=== PATIENT | female | born 1965 | race Caucasian/White ===

== ENCOUNTER 2021-02-02 09:18 | Inpatient (IN) ==
--- NOTE | 2021-02-02 09:51 | Emergency Department Note ---
Impression & Plan Altered mental status ED Provider Note NAME: SHAWNA DUONG AGE: 55 SEX: F : 1965 ARRIVES VIA: Ambulance INFORMANT: Patient, ED PROVIDER(S): Julio Lux MD Chief Complaint: Confusion, frequent falls HPI: Patient does present from [facility] due to concern for confusion and frequent falls. Patient was was recently started on baclofen. Patient's history is somewhat limited due to confusion. The patient will awake to voice but does not follow basic commands. The patient does move all 4 extremities. ROS: Unable to obtain secondary to confusion Past medical history: See below Surgical history: See below Social history: See below Physical Exam: GENERAL: NAD, [wearing a mask], non-toxic. EYE EXAM: Normal conjunctiva. PERRL, no anisocoria and EOM's grossly intact w/o pain. [OROPHARYNX: Moist mucus membranes. Grossly normal dentition. ] NECK: Supple, no nuchal rigidity, no adenopathy, non-tender. No signs of meningismus. LUNGS: Clear to auscultation. Normal chest wall mechanics. HEART: NSR, no MRG. ABDOMEN: Abdomen soft, non-tender, normo-active bowel sounds, no masses, no rebound or guarding. BACK: No CVA TTP. SKIN: No rashes and no bruising. UPPER EXTREMITIES: Upper extremities are grossly normal. LOWER EXTREMITIES: BKA is present, fairly well-healed, small wound to the distal portion of the right stump with no surrounding erythema fluctuance or drainage. NEURO EXAM: A&O x3, cranial nerves II-XII grossly intact, normal speech, moves all 4 extremities on command w/o issue. Differential diagnoses: Infection, dehydration, metabolic abnormality, hypo/hyperglycemia, electrolyte disturbance, anemia, hypoxia, cardiac sources, intracerebral event, toxicologic, neurologic, as well as other pathologies. Course: Patient was seen and evaluated the bedside. Full history physical exam was performed. [EKG interpreted by me] Normal sinus rhythm, rate of 71, normal intervals, normal axis, no ST changes or T WI. Imaging Studies: See Below [Cardiac monitoring: An order was placed for continuous cardiac monitoring. The monitor shows a rate of 75 with sinus rhythm.] MDM: Patient does present with concern for confusion and falls. The patient did have bladder completed along with a CT of the head and cervical spine. No obvious concerning wounds on the patient. Patient did have a small abrasion to the right BKA. Patient is afebrile. I did attempt to transfer the patient back to her side but they were concerned as the patient is not back to her baseline mental status. Given this I did add additional medications IV fluids and antibiotics as a precaution. Patient does not appear meningitic. Patient's blood work and imaging is fairly reassuring. The patient was mildly dry and did receive IV fluids. I did speak to the on-call hospitalist Dr. Brar the patient was adm itted to the medicine service. Past Med/Surg History Medical History Bipolar 1 disorder GERD (gastroesophageal reflux disease) H/O: HTN (hypertension) Osteomyelitis Pleural effusion Surgical History Hx of BKA Social History Smoking Status: Current every day smoker Current Living Situation: Residential Feels Safe at Home: Yes Allergies Allergies Allergy/AdvReac Type Severity Reaction Status Date / Time vancomycin AdvReac Unknown Unknown Unverified 09/10/20 14:31 Home Meds Home Medications Medication Instructions Recorded Confirmed alprazolam 0.25 mg tablet (Xanax) 0.25 mg PO BID 09/10/20 02/02/21 buprenorphine 8 mg-naloxone 2 mg 1 film SUBLINGUAL BID 09/10/20 02/02/21 sublingual film (Suboxone) escitalopram oxalate 20 mg tablet 20 mg PO QAM 09/10/20 02/02/21 (Lexapro) ferrous sulfate 325 mg (65 mg 325 mg PO QAM 09/10/20 02/02/21 iron) tablet (Iron (ferrous sulfate)) folic acid 1 mg tablet 1 mg PO QAM 09/10/20 02/02/21 gabapentin 300 mg capsule 300 mg PO TID 09/10/20 02/02/21 (Neurontin) insulin lispro 100 unit/mL 0 unit SUBCUT .SLIDING SCALE 09/10/20 02/02/21 subcutaneous pen (Humalog KwikPen (U-100) Insulin) metoprolol succinate 50 mg 50 mg PO BIDM 09/10/20 02/02/21 tablet,extended release 24 hr (Toprol XL) nicotine 21 mg/24 hr daily 1 patch TRANSDERMAL QAM 09/10/20 02/02/21 transdermal patch (Nicoderm CQ) oxcarbazepine 150 mg tablet 150 mg PO BID 09/10/20 02/02/21 (Trileptal) topiramate 25 mg tablet (Topamax) 25 mg PO QAM 09/10/20 02/02/21 amlodipine 5 mg tablet (Norvasc) 5 mg PO QAM 02/02/21 02/02/21 baclofen 10 mg tablet 10 mg PO TID 02/02/21 02/02/21 insulin glargine 100 unit/mL (3 10 unit SUBCUT HS 02/02/21 02/02/21 mL) subcutaneous pen (Lantus Solostar U-100 Insulin) pantoprazole 40 mg tablet,delayed 40 mg PO DAILYBB 02/02/21 02/02/21 release (Protonix) potassium chloride 20 mEq 20 meq PO QAM 02/02/21 02/02/21 tablet,extended release (K-Tab) quetiapine 25 mg tablet (Seroquel) 25 mg PO BID 02/02/21 02/02/21 sodium bicarbonate 650 mg tablet 650 mg PO TID 02/02/21 02/02/21 Results & Data (ED) Vital Signs Vital Signs - 24 hr 02/02/21 09:24 02/02/21 09:37 02/02/21 11:38 Temperature 37.2 C Temperature Source Oral Pulse Rate 73 72 71 Pulse Rate from SpO2 Sensor 71 Pulse Rhythm Regular Pulse Strength Normal Respiratory Rate 16 17 18 Respiratory Effort / Characteristics Non-Labored Spontaneous Respiratory Depth Normal Blood Pressure 182/101 H 182/101 H 171/118 H Blood Pressure Mean 128 128 135 Blood Pressure Position Lying Pulse Oximetry 95 100 99 Oxygen Delivery Method Room Air Sepsis Recent Fever Within 48 Hours No Sepsis New/Unexplained Change in Mental Status N/A Sepsis Action Taken by Nursing No Action Required 02/02/21 11:47 02/02/21 12:00 02/02/21 12:30 Temperature Temperature Source Pulse Rate 71 70 73 Pulse Rate from SpO2 Sensor 70 73 Pulse Rhythm Regular Pulse Strength Respiratory Rate 18 18 18 Respiratory Effort / Characteristics Respiratory Depth Blood Pressure 178/82 H 184/87 H Blood Pressure Mean 114 119 Blood Pressure Position Pulse Oximetry 99 99 100 Oxygen Delivery Method Room Air Sepsis Recent Fever Within 48 Hours Sepsis New/Unexplained Change in Mental Status Sepsis Action Taken by Nursing 02/02/21 13:00 02/02/21 13:30 02/02/21 14:06 Temperature Temperature Source Pulse Rate 77 77 76 Pulse Rate from SpO2 Sensor 76 76 76 Pulse Rhythm Pulse Strength Respiratory Rate 17 17 17 Respiratory Effort / Characteristics Respiratory Depth Blood Pressure 196/88 H 182/87 H 176/88 H Blood Pressure Mean 124 118 117 Blood Pressure Position Pulse Oximetry 98 98 98 Oxygen Delivery Method Sepsis Recent Fever Within 48 Hours Sepsis New/Unexplained Change in Mental Status Sepsis Action Taken by Nursing 02/02/21 14:49 02/02/21 16:00 02/02/21 16:30 Temperature Temperature Source Pulse Rate 74 79 76 Pulse Rate from SpO2 Sensor 75 79 78 Pulse Rhythm Pulse Strength Respiratory Rate 17 16 23 Respiratory Effort / Characteristics Respiratory Depth Blood Pressure 181/88 H 188/101 H 170/112 H Blood Pressure Mean 119 130 131 Blood Pressure Position Pulse Oximetry 98 98 94 Oxygen Delivery Method Sepsis Recent Fever Within 48 Hours Sepsis New/Unexplained Change in Mental Status Sepsis Action Taken by Nursing 02/02/21 17:00 Temperature Temperature Source Pulse Rate 74 Pulse Rate from SpO2 Sensor 74 Pulse Rhythm Pulse Strength Respiratory Rate 18 Respiratory Effort / Characteristics Respiratory Depth Blood Pressure 159/82 H Blood Pressure Mean 107 Blood Pressure Position Pulse Oximetry 97 Oxygen Delivery Method Sepsis Recent Fever Within 48 Hours Sepsis New/Unexplained Change in Mental Status Sepsis Action Taken by Residential Medications Current Medication List: was personally reviewed by me Laboratory Data Attestation: I reviewed the patient's lab results. Result diagrams: 02/02/21 11:10 02/02/21 11:10 Lab Results 02/02/21 02/02/21 02/02/21 Range/Units 09:35 10:15 11:10 WBC 6.24 (4.8-10.8) K/uL RBC 4.21 (4.2-5.4) M/uL Hgb 11.8 L (12.0-16.0) g/dL Hct 35.7 L (37-47) % MCV 84.8 (80-100) fL MCH 28.0 (25-34) pg MCHC 33.1 (32-36) g/dL RDW Std Deviation 42.1 (36.4-46.3) fL RDW Coeff of Luis 13.9 (11.5-14.5) % Plt Count 261 (130-400) K/uL MPV 9.2 (7.4-10.4) fL Immature Gran % (Auto) 0.8 % Neut % (Auto) 67.1 % Lymph % (Auto) 19.4 % [place] % (Auto) 10.4 % Eos % (Auto) 1.8 % Baso % (Auto) 0.5 % Neut # (Auto) 4.19 (1.4-6.5) K/uL Lymph # (Auto) 1.21 (1.2-3.4) K/uL [place] # (Auto) 0.65 H (0.11-0.59) K/uL Eos # (Auto) 0.11 (0-0.5) K/uL Baso # (Auto) 0.03 (0-0.2) K/uL Immature Gran # (Auto) 0.05 H (0.00-0.02) K/uL Sodium (136-145) mmol/L Potassium (3.5-5.1) mmol/L Chloride (98-107) mmol/L Carbon Dioxide (21-32) mmol/L Anion Gap (3-11) BUN (7-18) mg/dl Creatinine (0.6-1.2) mg/dl Est Cr Clr Drug Dosing ml/min Est GFR ( Amer) ml/min Est GFR (Non-Af Amer) ml/min BUN/Creatinine Ratio (10-20) Glucose (70-99) mg/dl POC Glucose 180 H (70-99) mg/dl Calcium (8.5-10.1) mg/dl Total Bilirubin (0.2-1) mg/dl AST (15-37) U/L ALT (12-78) U/L Alkaline Phosphatase (45-117) U/L Troponin I (0-0.045) ng/ml Total Protein (6.4-8.2) gm/dl Albumin (3.4-5.0) gm/dl Globulin (2.5-4.0) gm/dl Albumin/Globulin Ratio (0.9-2) TSH (0.300-4.500) uIu/ml Urine Color Yellow Urine Appearance Clear (Clear) Urine pH 7.5 (4.5-7.5) Ur Specific Scenic 1.013 (1.000-1.030) Urine Protein 2+ H (Negative) Urine Glucose (UA) 1+ H (Negative) Urine Ketones Negative (Negative) Urine Blood Trace H (Negative) Urine Nitrite Negative (Negative) Urine Bilirubin Negative (Negative) Urine Urobilinogen Negative (Negative) Ur Leukocyte Esterase Negative (Negative) Urine WBC (Auto) 0 (0-5) /hpf Urine RBC (Auto) 5-10 H (0-4) /hpf U Hyaline Cast (Auto) 0 (0-5) /lpf U Epithel Cells (Auto) 0-5 (0-5) /lpf Urine Bacteria (Auto) Negative (Negative) 02/02/21 Range/Units 11:10 WBC (4.8-10.8) K/uL RBC (4.2-5.4) M/uL Hgb (12.0-16.0) g/dL Hct (37-47) % MCV (80-100) fL MCH (25-34) pg MCHC (32-36) g/dL RDW Std Deviation (36.4-46.3) fL RDW Coeff of Luis (11.5-14.5) % Plt Count (130-400) K/uL MPV (7.4-10.4) fL Immature Gran % (Auto) % Neut % (Auto) % Lymph % (Auto) % [place] % (Auto) % Eos % (Auto) % Baso % (Auto) % Neut # (Auto) (1.4-6.5) K/uL Lymph # (Auto) (1.2-3.4) K/uL [place] # (Auto) (0.11-0.59) K/uL Eos # (Auto) (0-0.5) K/uL Baso # (Auto) (0-0.2) K/uL Immature Gran # (Auto) (0.00-0.02) K/uL Sodium 139 (136-145) mmol/L Potassium 5.0 (3.5-5.1) mmol/L Chloride 111 H (98-107) mmol/L Carbon Dioxide 24 (21-32) mmol/L Anion Gap 4.0 (3-11) BUN 35 H (7-18) mg/dl Creatinine 1.65 H (0.6-1.2) mg/dl Est Cr Clr Drug Dosing 38.3 ml/min Est GFR ( Amer) 39.8 ml/min Est GFR (Non-Af Amer) 34.3 ml/min BUN/Creatinine Ratio 21.2 H (10-20) Glucose 152 H (70-99) mg/dl POC Glucose (70-99) mg/dl Calcium 8.8 (8.5-10.1) mg/dl Total Bilirubin 0.2 (0.2-1) mg/dl AST 35 (15-37) U/L ALT 18 (12-78) U/L Alkaline Phosphatase 145 H (45-117) U/L Troponin I < 0.015 (0-0.045) ng/ml Total Protein 8.1 (6.4-8.2) gm/dl Albumin 2.7 L (3.4-5.0) gm/dl Globulin 5.4 H (2.5-4.0) gm/dl Albumin/Globulin Ratio 0.5 L (0.9-2) TSH 2.760 (0.300-4.500) uIu/ml Urine Color Urine Appearance (Clear) Urine pH (4.5-7.5) Ur Specific [place]enic (1.000-1.030) Urine Protein (Negative) Urine Glucose (UA) (Negative) Urine Ketones (Negative) Urine Blood (Negative) Urine Nitrite (Negative) Urine Bilirubin (Negative) Urine Urobilinogen (Negative) Ur Leukocyte Esterase (Negative) Urine WBC (Auto) (0-5) /hpf Urine RBC (Auto) (0-4) /hpf U Hyaline Cast (Auto) (0-5) /lpf U Epithel Cells (Auto) (0-5) /lpf Urine Bacteria (Auto) (Negative) Administered Medications Heparin Sodium (Porcine) (Heparin Sod 5,000 Unit/0.5 Ml Vial) 5,000 units SQ Q12 ABIGAIL Stop: 03/04/21 20:59 Last Admin: 02/02/21 22:03 Dose: 5,000 units Documented by: [id number] Lactated Ringer's (Lr) 1,000 mls @ 80 mls/hr IV .[id number] ABIGAIL Stop: 03/04/21 20:21 Last Admin: 02/02/21 20:34 Dose: 80 mls/hr Documented by: [id number] Insulin Aspart (Insulin Aspart 100 Units/Ml 3 Ml Pen) 0 units SC ACHS [facility] Stop: 03/04/21 20:59 Last Admin: 02/02/21 22:04 Dose: Not Given Documented by: [id number] Labetalol HCl (Labetalol Hcl Iv 5 Mg/Ml 20ml) 10 mg IV Q4 PRN PRN Reason: HTN SBP >200 and/or DBP >110 Stop: 03/04/21 18:04 Last Admin: 02/03/21 03:56 Dose: 10 mg Documented by: [id number] Cosigned by: [id number] Oxcarbazepine (Oxcarbazepine 150 Mg Tablet) 150 mg PO BID [facility] Stop: 03/04/21 20:59 Last Admin: 02/02/21 22:25 Dose: Not Given Documented by: [id number] Quetiapine Fumarate (Quetiapine Fumarate 25 Mg Tablet) 25 mg PO BID [facility] Stop: 03/04/21 20:59 Last Admin: 02/02/21 22:24 Dose: Not Given Documented by: [id number] Sodium Bicarbonate (Sodium Bicarbonate 650 Mg Tab) 650 mg PO TID [facility] Stop: 03/04/21 20:59 Last Admin: 02/02/21 22:24 Dose: Not Given Documented by: [id number] Discontinued Medications Haloperidol Lactate (Haloperidol Lactate 5 Mg/Ml 1 Ml Vial) 5 mg IM Q4 PRN PRN Reason: combativeness Stop: 02/03/21 00:01 Last Admin: 02/02/21 18:32 Dose: 5 mg Documented by: [id number] Haloperidol Lactate (Haloperidol Lactate 5 Mg/Ml 1 Ml Vial) 5 mg IV Q4H PRN PRN Reason: agitation, combativenss Stop: 03/04/21 18:28 Last Admin: 02/02/21 23:45 Dose: 5 mg Documented by: [id number] Haloperidol Lactate (Haloperidol Lactate 5 Mg/Ml 1 Ml Vial) Confirm Administered Dose 5 mg .ROUTE .STK-MED ONE Stop: 02/03/21 00:06 Last Admin: 02/03/21 00:17 Dose: Not Given Documented by: [id number] Haloperidol Lactate (Haloperidol Lactate 5 Mg/Ml 1 Ml Vial) 5 mg IM NOW STA Stop: 02/03/21 00:14 Last Admin: 02/03/21 00:22 Dose: 5 mg Documented by: [id number] Sodium Chloride (Nss) 500 mls @ 999 mls/hr IV .Q31M ABIGAIL Stop: 02/02/21 10:45 Last Infusion: 02/02/21 12:14 Dose: 0 mls/hr Documented by: [id number] Admin: 02/02/21 11:43 Dose: 999 mls/hr Documented by: [id number] Sodium Chloride (Nss 1000ml) 1,000 mls @ 999 mls/hr IV .Q1H1M ONE Stop: 02/02/21 13:22 Last Infusion: 02/02/21 13:33 Dose: 0 mls/hr Documented by: [id number] Admin: 02/02/21 12:28 Dose: 999 mls/hr Documented by: [id number] Piperacillin Sod/Tazobactam Sod (Zosyn) 4.5 gm in 120 mls @ 240 mls/hr IV NOW ONE Stop: 02/02/21 16:14 Last Infusion: 02/02/21 16:25 Dose: 0 mls/hr Documented by: [id number] Admin: 02/02/21 15:55 Dose: 240 mls/hr Documented by: [id number] Lorazepam (Lorazepam 2 Mg/Ml Vial (Im Use)) 0.5 mg IM NOW STA Stop: 02/02/21 15:51 Last Admin: 02/02/21 15:55 Dose: 0.5 mg Documented by: [id number] Discharge Plan Visit Data Chief Complaint: Altered Mental Status ED Provider: Julio Lux Discharge Problem: Altered mental status Patient Disposition: Admitted As Inpatient Condition: Good Discharge Instructions Interventions: ED Discharge Assessment Last Done: 02/02/21 20:04 Discharge Problem: Altered mental status Qualifiers: Altered mental status type: unspecified Qualified Code(s): R41.82 - Altered mental status, unspecified
[2021-02-02] MEDS ORDERED: SODIUM CHLORIDE 0.9% 500 ML IV SCH (10:15)
--- NOTE | 2021-02-02 11:00 | XRay Report ---
XR chest 1V portable CLINICAL HISTORY: confusion, falls COMPARISON STUDY: Chest radiograph and chest CT September 10, 2020. FINDINGS: Incidental note is made of cholecystectomy clips. Elevation of the right hemidiaphragm is u nchanged. There is no consolidation or evidence for pulmonary edema. Cardiomediastinal silhouette is unremarkable. IMPRESSION: No acute cardiopulmonary findings. ACT 112: Negative or not required by law. Electronically signed by: Carlos Saavedra M.D. 02/02/2021 10:59 AM
[2021-02-02 11:22] LABS: Basophils # (auto) 0.03 K/uL (0-0.2); Basophils % (auto) 0.5 %; Eosinophils # (auto) 0.11 K/uL (0-0.5); Eosinophils % (auto) 1.8 %; Hematocrit (blood only) 35.7 % (37-47); Hemoglobin 11.8 g/dL (12.0-16.0); Immature Granulocytes # (auto) 0.05 K/uL (0.00-0.02); Immature Granulocytes % (auto) 0.8 %; Lymphocytes # (auto) 1.21 K/uL (1.2-3.4); Lymphocytes % (auto) 19.4 %; Mean Corpuscular Hgb Conc 33.1 g/dL (32-36); Mean Corpuscular Volume 84.8 fL (80-100); Mean Platelet Volume 9.2 fL (7.4-10.4); Monocytes # (auto) 0.65 K/uL (0.11-0.59); Monocytes % (auto) 10.4 %; Neutrophils # (auto) 4.19 K/uL (1.4-6.5); Neutrophils % (auto) 67.1 %; Platelet Count 261 K/uL (130-400); RDW Coefficient of Variation 13.9 % (11.5-14.5); RDW Standard Deviation 42.1 fL (36.4-46.3); Red Blood Count 4.21 M/uL (4.2-5.4); White Blood Count 6.24 K/uL (4.8-10.8)
[2021-02-02 11:42] LABS: Alanine Aminotransferase 18 U/L (12-78); Albumin Level 2.7 gm/dl (3.4-5.0); Aspartate Aminotransferase 35 U/L (15-37); BUN Creatinine Ratio 21.2 (10-20); Blood Urea Nitrogen 35 mg/dl (7-18); Calcium 8.8 mg/dl (8.5-10.1); Carbon Dioxide 24 mmol/L (21-32); Chloride 111 mmol/L (98-107); Creatinine Clr Calc Pharmacy 38.3 ml/min; Est GFR (African American) 39.8 ml/min; Est GFR (Non-African American) 34.3 ml/min; Glucose 152 mg/dl (70-99); Sodium 139 mmol/L (136-145)
[2021-02-02 11:52] LABS: Albumin Globulin Ratio 0.5 (0.9-2); Alkaline Phosphatase 145 U/L (45-117); Bilirubin,Total 0.2 mg/dl (0.2-1); Globulin 5.4 gm/dl (2.5-4.0); Total Protein 8.1 gm/dl (6.4-8.2); Troponin I < 0.015 ng/ml (0-0.045)
--- NOTE | 2021-02-02 11:52 | CT Scan Report ---
CT SCAN OF THE CERVICAL SPINE CLINICAL HISTORY: Falls. Change in mental status. COMPARISON STUDY: No priors. TECHNIQUE: CT scan of the cervical spine is performed from the skull base to the upper thoracic spine . Images are reviewed in the axial, sagittal, and coronal planes. IV contrast was not administered fo r this examination. A dose lowering technique was utilized adhering to the principles of ALARA. CT DOSE: 1460.21 mGy.cm FINDINGS: Skeletal structures: The skeletal structures appear osteopenic. There is no evidence of fracture or s ubluxation involving the cervical spine. Vertebral body height and alignment are maintained. There is straightening of the cervical lordosis. Small anterior osteophytes are seen throughout. The odontoid process and lateral masses are intact. The atlantoaxial articulation is preserved noting productive degenerative change. The spinous processes appear intact. Intervertebral discs: There is mild multilevel disc space narrowing, greatest at C5-C6. Central canal: Posterior disc osteophyte complexes at C3-C4, C4-C5, and C5-C6 may contribute to mild acquired compromise of the central canal. Soft tissues: The prevertebral and paraspinous soft tissues are within normal limits. There is athero sclerotic calcification of the carotid bulbs. Calvarium: The visualized calvarium at the skull base appears intact. Brain parenchyma: Partially visualized brain parenchyma at the skull base is within normal limits. Mastoids: The mastoid air cells are well pneumatized. Lung apices: Clear as visualized. IMPRESSION: There is no evidence of fracture or subluxation involving the cervical spine. ACT 112: Negative or not required by law. Electronically signed by: Erik Martinez M.D. 02/02/2021 11:50 AM
--- NOTE | 2021-02-02 11:53 | CT Scan Report ---
CT OF THE HEAD WITHOUT CONTRAST CLINICAL HISTORY: falls COMPARISON STUDY: No previous studies for comparison. TECHNIQUE: Helical axial images of the head were obtained without IV contrast. Automated exposure con trol was utilized for the study. A dose lowering technique was utilized adhering to the principles o f ALARA. FINDINGS: This exam is mildly compromised by motion artifact. No acute intracranial hemorrhage, midli ne shift or mass effect is present. Ventricular system is normal. Basilar cisterns are patent. There are no extra axial collections. Hypodensity within the posterior limb of the left internal capsule is noted. There are no findings to suggest acute dural sinus thrombosis or acute territorial infarct. N o calvarial fracture is identified. There is a small left facial contusion. IMPRESSION: 1. Exam mildly compromised by motion artifact. No acute intracranial hemorrhage or mass effect. 2. Hypodensity within the posterior limb of the left internal capsule. Although technically age indet erminate, this is likely chronic. 3. Small left facial contusion. 4. No calvarial fracture identified. ACT 112: Negative or not required by law. Electronically signed by: Carlos Saavedra M.D. 02/02/2021 11:51 AM
[2021-02-02] MEDS ORDERED: SODIUM CHLORIDE 0.9% 1000ML 1,000 ML IV ONE (12:22)
[2021-02-02 12:23] LABS: Appearance Urine Clear (Clear); Bacteria Urine Automated Negative (Negative); Bilirubin Urine Negative (Negative); Blood Urine Trace (Negative); Cast Urine Automated 0 /lpf (0-5); Color Urine Yellow; Epithelial Cell Urine Auto 0-5 /lpf (0-5); Glucose Urine UA 1+ (Negative); Ketones Urine Negative (Negative); Leukocyte Esterase Urine Negative (Negative); Nitrite Urine Negative (Negative); Specific Gravity Urine 1.013 (1.000-1.030); Urobilinogen Urine Negative (Negative); WBC Urine Automated 0 /hpf (0-5); pH Urine 7.5 (4.5-7.5)
[2021-02-02 12:33] LABS: Protein Urine 2+ (Negative)
[2021-02-02] MEDS ORDERED: PIPERACILLIN/TAZOBACTAM 4.5 GM/120 ML BAG IV ONE (15:45)
[2021-02-02] MEDS ORDERED: PIPERACILL/TAZOBAC CONSULT ACTIVE PRN (15:45)
[2021-02-02] MEDS ORDERED: LORazepam 2 MG/ML VIAL (IM USE) IM STA (15:50)
--- NOTE | 2021-02-02 17:22 | History & Physical Report ---
Date of Service February 02, 2021 Assessment & Plan (1) Altered mental status: Plan: Delirium vs. medication induced delirium vs. post concussion - no acute findings on head CT scan, not hypoxic, toxicology screen pending, normothermic, no evidence of focal deficits and/or infective process - consider adding thiamine if no improvement - hold baclofen - hold Xanax - should be able to tolerate oral - continue with her Suboxone starting tomorrow, continue escitalopram, - hold Neurontin - Repeat head CT scan for any acute changes for DASH (delayed onset subdural hematoma) post falls - Attempt to avoid further benzodiazepines - for acute combative episodes Haldol IM - TSH normal, electrolytes and glucose normal - If no improvement may need to consider alternatives with LP (2) DMII (diabetes mellitus, type 2): Plan: Continue with bolus insulin until mentation improves to ensure adequate PO intake - Clears for now as toelrated (3) H/O: HTN (hypertension): Plan: Continue with metoprolol - IV labatelol support as needed for severe HTN (4) GERD (gastroesophageal reflux disease): Plan: Continue with protonix 40 PO daily; change to IV if unable to take PO (5) Bipolar 1 disorder: Plan: As above, continue mood stabilizing medications History of Present Illness Primary Care Provider: Wesley Williamson 55 YOF with resident of [facility] with past medical history of: DM II, Chronic pain, GERD, HTN, bilateral BKA, bipolar disorder, YARY, EVELIA, nicotine dependance, generalized muscle weakness. There are no records in our system for review. Patient is also now sedated following Ativan in the EMD for combativeness and delirium. Most of the information in this HPI is obtained from record review that accompanied the patient from [facility]. The patient was brought to the EMD today secondary to multiple falls as well as acute delirium and confusion. Review of nursing notes show that patient had a fall from her wheel chair on the in the evening, following with delirium on the as well as another fall out of bed on the early in the morning. Patient also reported to be getting out of bed and attempting to walk on her stumps looking for her cigarettes. The patient was started on Baclofen on the assuming for her chronic pain syndrome. This has since been held sine the in the morning. Patient arrived in the EMD had a CT scan of the head and neck performed. Revealing osteophytes in the cervical region of c3-c6 with mild acquired compromise of the central canal and atheroscleroptic calcifications of the carotid bulbs. CT of the head revealed hypodensity of the posterior limb of the left internal capsule likely chronic. Per the EMD the nurse the patient would wax and wane with her delirium and was again attempting to get up out of bed, and was sedated with Ativan. Her routine lab work did not reveal any evidence of infection and urine was not noted to have any bacteria. Her glucose is in an accetable range. In the EMD she was given 1 dose of Zosyn. Patient will be admitted for medical telemetry to continue to evaluate her delirium and monitor for any other dysrhythmias. Allergies Allergy/AdvReac Type Severity Reaction Status Date / Time vancomycin AdvReac Unknown Unknown Unverified 09/10/20 14:31 Home Medications Medication Instructions Recorded Confirmed Type alprazolam 0.25 mg tablet (Xanax) 0.25 mg PO BID 09/10/20 02/02/21 History buprenorphine 8 mg-naloxone 2 mg 1 film SUBLINGUAL BID 09/10/20 02/02/21 History sublingual film (Suboxone) escitalopram oxalate 20 mg tablet 20 mg PO QAM 09/10/20 02/02/21 History (Lexapro) ferrous sulfate 325 mg (65 mg 325 mg PO QAM 09/10/20 02/02/21 History iron) tablet (Iron (ferrous sulfate)) folic acid 1 mg tablet 1 mg PO QAM 09/10/20 02/02/21 History gabapentin 300 mg capsule 300 mg PO TID 09/10/20 02/02/21 History (Neurontin) insulin lispro 100 unit/mL 0 unit SUBCUT .SLIDING SCALE 09/10/20 02/02/21 H istory subcutaneous pen (Humalog KwikPen (U-100) Insulin) metoprolol succinate 50 mg 50 mg PO BIDM 09/10/20 02/02/21 History tablet,extended release 24 hr (Toprol XL) nicotine 21 mg/24 hr daily 1 patch TRANSDERMAL QAM 09/10/20 02/02/21 History transdermal patch (Nicoderm CQ) oxcarbazepine 150 mg tablet 150 mg PO BID 09/10/20 02/02/21 History (Trileptal) topiramate 25 mg tablet (Topamax) 25 mg PO QAM 09/10/20 02/02/21 History amlodipine 5 mg tablet (Norvasc) 5 mg PO QAM 02/02/21 02/02/21 History baclofen 10 mg tablet 10 mg PO TID 02/02/21 02/02/21 History insulin glargine 100 unit/mL (3 10 unit SUBCUT HS 02/02/21 02/02/21 History mL) subcutaneous pen (Lantus Solostar U-100 Insulin) pantoprazole 40 mg tablet,delayed 40 mg PO DAILYBB 02/02/21 02/02/21 History release (Protonix) potassium chloride 20 mEq 20 meq PO QAM 02/02/21 02/02/21 History tablet,extended release (K-Tab) quetiapine 25 mg tablet (Seroquel) 25 mg PO BID 02/02/21 02/02/21 History sodium bicarbonate 650 mg tablet 650 mg PO TID 02/02/21 02/02/21 History Past Med/Surg History Medical History (Updated 02/02/21 @ 17:51 by BARRETT Bartholomew) Bipolar 1 disorder GERD (gastroesophageal reflux disease) H/O: HTN (hypertension) Osteomyelitis Pleural effusion Surgical History (Updated 02/02/21 @ 15:54 by Julio Lux MD) Hx of BKA Social History Smoking Status: Current every day smoker Feels Safe at Home: Yes Review of Systems Review of Systems: Unable to perform secondary to sedation Physical Exam Physical Exam: PHYSICAL EXAM: General: sedated Head: Normocephalic, ENT: PERRLA, no pharyngeal exudate, mucous membranes moist Neuro: sedated, opens eyes to speech and pain, prior to sedation she was reportedly awake and forming complete sentences although confused, moved all extremities. Currently localizes pain Chest: equal rise and fall of the chest, no accessory muscle use, no heaves or thrills, Clear to auscultation, on room air, Cardiac: Regular rate and rhythm, telemetry reviewed, skin warm dry, cap refill <3 seconds, peripheral pulses +2 no JVD, no murmur, no edema GI: NABS x 4 quadrants, soft, no guarding or tenderness : Spontaneously voiding, Extremities: bilateral bka Psych: as per HPI Skin: no rash or erythema Results & Data Results & Data ([facility]) Vital Signs (Past 12 Hours) Vital Signs Temp Pulse Resp BP Pulse Ox 02/02/21 16:30 76 23 170/112 H 94 02/02/21 16:00 79 16 188/101 H 98 02/02/21 14:49 74 17 181/88 H 98 02/02/21 14:06 76 17 176/88 H 98 02/02/21 13:30 77 17 182/87 H 98 02/02/21 13:00 77 17 196/88 H 98 02/02/21 12:30 73 18 184/87 H 100 02/02/21 12:00 70 18 178/82 H 99 02/02/21 11:47 71 18 99 02/02/21 11:38 71 18 171/118 H 99 02/02/21 09:37 37.2 C 72 17 182/101 H 100 02/02/21 09:24 73 16 182/101 H 95 Laboratory Results Abnormal lab results 02/02/21 02/02/21 02/02/21 Range/Units 09:35 10:15 11:10 Hgb 11.8 L (12.0-16.0) g/dL Hct 35.7 L (37-47) % Faulkner # (Auto) 0.65 H (0.11-0.59) K/uL Immature Gran # (Auto) 0.05 H (0.00-0.02) K/uL Chloride (98-107) mmol/L BUN (7-18) mg/dl Creatinine (0.6-1.2) mg/dl BUN/Creatinine Ratio (10-20) Glucose (70-99) mg/dl POC Glucose 180 H (70-99) mg/dl Alkaline Phosphatase (45-117) U/L Albumin (3.4-5.0) gm/dl Globulin (2.5-4.0) gm/dl Albumin/Globulin Ratio (0.9-2) Urine Protein 2+ H (Negative) Urine Glucose (UA) 1+ H (Negative) Urine Blood Trace H (Negative) Urine RBC (Auto) 5-10 H (0-4) /hpf 02/02/21 Range/Units 11:10 Hgb (12.0-16.0) g/dL Hct (37-47) % Faulkner # (Auto) (0.11-0.59) K/uL Immature Gran # (Auto) (0.00-0.02) K/uL Chloride 111 H (98-107) mmol/L BUN 35 H (7-18) mg/dl Creatinine 1.65 H (0.6-1.2) mg/dl BUN/Creatinine Ratio 21.2 H (10-20) Glucose 152 H (70-99) mg/dl POC Glucose (70-99) mg/dl Alkaline Phosphatase 145 H (45-117) U/L Albumin 2.7 L (3.4-5.0) gm/dl Globulin 5.4 H (2.5-4.0) gm/dl Albumin/Globulin Ratio 0.5 L (0.9-2) Urine Protein (Negative) Urine Glucose (UA) (Negative) Urine Blood (Negative) Urine RBC (Auto) (0-4) /hpf Diagnostic Findings Chest X-Ray 02/02/21 10:14 XR chest 1V portable CLINICAL HISTORY: confusion, falls COMPARISON STUDY: Chest radiograph and chest CT September 10, 2020. FINDINGS: Incidental note is made of cholecystectomy clips. Elevation of the right hemidiaphragm is unchanged. There is no consolidation or evidence for pulmonary edema. Cardiomediastinal silhouette is unremarkable. IMPRESSION: No acute cardiopulmonary findings. ACT 112: Negative or not required by law. Electronically signed by: Carlos Saavedra M.D. 02/02/2021 10:[address] 02/02/21 10:14 CT OF THE HEAD WITHOUT CONTRAST CLINICAL HISTORY: falls COMPARISON STUDY: No previous studies for comparison. TECHNIQUE: Helical axial images of the head were obtained without IV contrast. Automated exposure control was utilized for the study. A dose lowering technique was utilized adhering to the principles of ALARA. FINDINGS: This exam is mildly compromised by motion artifact. No acute intracranial hemorrhage, midline shift or mass effect is present. Ventricular system is normal. Basilar cisterns are patent. There are no extra axial collections. Hypodensity within the posterior limb of the left internal capsule is noted. There are no findings to suggest acute dural sinus thrombosis or acute territorial infarct. No calvarial fracture is identified. There is a small left facial contusion. IMPRESSION: 1. Exam mildly compromised by motion artifact. No acute intracranial hemorrhage or mass effect. 2. Hypodensity within the posterior limb of the left internal capsule. Although technically age indeterminate, this is likely chronic. 3. Small left facial contusion. 4. No calvarial fracture identified. ACT 112: Negative or not required by law. Electronically signed by: Carlos Saavedra M.D. 02/02/2021 11:[address] 02/02/21 10:15 CT SCAN OF THE CERVICAL SPINE CLINICAL HISTORY: Falls. Change in mental status. COMPARISON STUDY: No priors. TECHNIQUE: CT scan of the cervical spine is performed from the skull base to the upper thoracic spine. Images are reviewed in the axial, sagittal, and coronal planes. IV contrast was not administered for this examination. A dose lowering technique was utilized adhering to the principles of ALARA. CT DOSE: 1460.21 mGy.cm FINDINGS: Skeletal structures: The skeletal structures appear osteopenic. There is no evidence of fracture or subluxation involving the cervical spine. Vertebral body height and alignment are maintained. There is straightening of the cervical lordosis. Small anterior osteophytes are seen throughout. The odontoid process and lateral masses are intact. The atlantoaxial articulation is preserved noting productive degenerative change. The spinous processes appear intact. Intervertebral discs: There is mild multilevel disc space narrowing, greatest at C5-C6. Central canal: Posterior disc osteophyte complexes at C3-C4, C4-C5, and C5-C6 may contribute to mild acquired compromise of the central canal. Soft tissues: The prevertebral and paraspinous soft tissues are within normal limits. There is atherosclerotic calcification of the carotid bulbs. Calvarium: The visualized calvarium at the skull base appears intact. Brain parenchyma: Partially visualized brain parenchyma at the skull base is within normal limits. Mastoids: The mastoid air cells are well pneumatized. Lung apices: Clear as visualized. IMPRESSION: There is no evidence of fracture or subluxation involving the cervical spine. ACT 112: Negative or not required by law. Electronically signed by: Erik Martinez M.D. 02/02/2021 11:50 AM Medications Administered Home Medications alprazolam 0.25 mg tablet (Xanax) 0.25 mg PO BID 09/10/20 [History Confirmed 02/02/21] buprenorphine 8 mg-naloxone 2 mg sublingual film (Suboxone) 1 film SUBLINGUAL BID 09/10/20 [History Confirmed 02/02/21] escitalopram oxalate 20 mg tablet (Lexapro) 20 mg PO QAM 09/10/20 [History Confirmed 02/02/21] ferrous sulfate 325 mg (65 mg iron) tablet (Iron (ferrous sulfate)) 325 mg PO QAM 09/10/20 [History Confirmed 02/02/21] folic acid 1 mg tablet 1 mg PO QAM 09/10/20 [History Confirmed 02/02/21] gabapentin 300 mg capsule (Neurontin) 300 mg PO TID 09/10/20 [History Confirmed 02/02/21] insulin lispro 100 unit/mL subcutaneous pen (Humalog KwikPen (U-100) Insulin) 0 unit SUBCUT .SLIDING SCALE 09/10/20 [History Confirmed 02/02/21] metoprolol succinate 50 mg tablet,extended release 24 hr (Toprol XL) 50 mg PO BIDM 09/10/20 [History Confirmed 02/02/21] nicotine 21 mg/24 hr daily transdermal patch (Nicoderm CQ) 1 patch TRANSDERMAL QAM 09/10/20 [History Confirmed 02/02/21] oxcarbazepine 150 mg tablet (Trileptal) 150 mg PO BID 09/10/20 [History Confirmed 02/02/21] topiramate 25 mg tablet (Topamax) 25 mg PO QAM 09/10/20 [History Confirmed 02/02/21] amlodipine 5 mg tablet (Norvasc) 5 mg PO QAM 02/02/21 [History Confirmed 02/02/21] baclofen 10 mg tablet 10 mg PO TID 02/02/21 [History Confirmed 02/02/21] insulin glargine 100 unit/mL (3 mL) subcutaneous pen (Lantus Solostar U-100 Insulin) 10 unit SUBCUT HS 02/02/21 [History Confirmed 02/02/21] pantoprazole 40 mg tablet,delayed release (Protonix) 40 mg PO DAILYBB 02/02/21 [History Confirmed 02/02/21] potassium chloride 20 mEq tablet,extended release (K-Tab) 20 meq PO QAM 02/02/21 [History Confirmed 02/02/21] quetiapine 25 mg tablet (Seroquel) 25 mg PO BID 02/02/21 [History Confirmed 02/02/21] sodium bicarbonate 650 mg tablet 650 mg PO TID 02/02/21 [History Confirmed 02/02/21] Active Medications Miscellaneous Information (Piperacill/Tazobac Consult Active) 1 ea N/A UD PRN PRN Reason: Consult Stop: 03/04/21 15:44 Discontinued Medications Sodium Chloride (Nss) 500 mls @ 999 mls/hr IV .Q31M ABIGAIL Stop: 02/02/21 10:45 Last Infusion: 02/02/21 12:14 Dose: 0 mls/hr Documented by: [id number] Admin: 02/02/21 11:43 Dose: 999 mls/hr Documented by: [id number] Sodium Chloride (Nss 1000ml) 1,000 mls @ 999 mls/hr IV .Q1H1M ONE Stop: 02/02/21 13:22 Last Infusion: 02/02/21 13:33 Dose: 0 mls/hr Documented by: [id number] Admin: 02/02/21 12:28 Dose: 999 mls/hr Documented by: [id number] Piperacillin Sod/Tazobactam Sod (Zosyn) 4.5 gm in 120 mls @ 240 mls/hr IV NOW ONE Stop: 02/02/21 16:14 Last Infusion: 02/02/21 16:25 Dose: 0 mls/hr Documented by: [id number] Admin: 02/02/21 15:55 Dose: 240 mls/hr Documented by: [id number] Lorazepam (Lorazepam 2 Mg/Ml Vial (Im Use)) 0.5 mg IM NOW STA Stop: 02/02/21 15:51 Last Admin: 02/02/21 15:55 Dose: 0.5 mg Documented by: [id number] ECG Additional Comments: Normal sinus rhythm Normal ECG When compared with ECG of 10-SEP-2020 13:09, ST no longer depressed in Inferior leads Code Status & VTE Plan Code Status CODE: DNR/DNI per record review VTE: Heparin subq 5000 subq q12 Supervising Physician Co-Signing Physician Notes Pt seen/examined in conjunction with SAVANNAH Mendez. Orders and plan of admission reviewed. 55 y/o F Hx HTN, DM II, bipolar, BL BKA, Chronic pain. The pt presents from a nursing facility with acute delirium. She has not had fevers. Labs are at baseline and imaging is negative for acute findings. Per nursing staff at her facility, she became progressively confused after being placed on Baclofen. \ The pt could not provide us with any information. We left a message with her daughter who was also not available at the time of admission. OE: General: The pt had received lorazepam in the ER at the time of my exam and was not awake ENT: Could not examine oral cavity Eyes: KINGS, EOMI Head and neck: Normocephalic, atraumatic, No JVD, neck is supple. Chest/heart: Nontender, S1,2, RRR, no murmurs, no gallops Lungs: CTAB, no wheezing or crackles Abdomen: Nontender, nondistended, BS+ Neuro: Neuro exam is partially deferred - she is moving all extrems when awake Musculoskeletal: BL BKA - no signs of infection and no edema Skin: No acute rashes or ulcers Extremities: BL BKA P: 1) AMS - we suspect polypharmacy as we do not have evidence of infection - she is taking multiple psychoactive medications and Suboxone as well. We are holding her Xanax and gabapentin. For now, she scan continue Seroquel and Suboxone if tolerated. 2) DM - SS Q6 3) HTN - metoprolol, amlodipine 4) Chronic pain - Suboxone should be continued Full code - Heparin prophylaxis Total time for this admit including review of labs, meds, imaging, available records - discussion with ER attending - 42 min PG Care Time/CCT Total # of Minutes Spent Total Time Spent with Patient: Total time spent is greater than 50% in coordination of care (as documented) at patient's floor/unit and/or counseling patient: Coding Level of Care Code INT OBSERVATION CARE 70M LVL 3 Diagnoses Altered mental status R41.82 Altered mental status type: unspecified DMII (diabetes mellitus, type 2) E11.9 H/O: HTN (hypertension) Z86.79 GERD (gastroesophageal reflux disease) K21.9 Bipolar 1 disorder F31.9 (1) Altered mental status Altered mental status type: unspecified Qualified Code(s): R41.82 - Altered mental status, unspecified
[2021-02-02] MEDS ORDERED: HALOPERIDOL LACTATE 5 MG/ML 1 ML VIAL IM PRN (18:02)
[2021-02-02] MEDS ORDERED: HALOPERIDOL LACTATE 5 MG/ML 1 ML VIAL IV PRN (18:29)
[2021-02-02] MEDS ORDERED: LACTATED RINGER'S 1,000 ML IV SCH (20:22)
[2021-02-02] MEDS ORDERED: GLUCOSE 40% GEL 15 GM TUBE PO PRN (20:22)
[2021-02-02] MEDS ORDERED: CARBOHYDRATES FOR HYPOGLYCEMIA PO PRN (20:22)
[2021-02-02] MEDS ORDERED: GLUCOSE 10 TABS/TUBE PO PRN (20:22)
[2021-02-02] MEDS ORDERED: GLUCAGON FOR INJ 1 MG VIAL SQ PRN (20:22)
[2021-02-02] MEDS ORDERED: DEXTROSE 50% 50 ML SYRINGE IV PRN (20:22)
[2021-02-02] MEDS: HEPARIN SOD 5,000 UNIT/0.5 ML VIAL SQ SCH (22:03)
[2021-02-02] MEDS: INSULIN ASPART 100 UNITS/ML 3 ML PEN SC SCH (22:04)
[2021-02-02] MEDS: SODIUM BICARBONATE 650 MG TAB PO SCH (22:24)
[2021-02-02] MEDS: QUEtiapine FUMARATE 25 MG TABLET PO SCH (22:24)
[2021-02-02] MEDS: OXcarbazepine 150 MG TABLET PO SCH (22:25)
[2021-02-03] MEDS ORDERED: HALOPERIDOL LACTATE 5 MG/ML 1 ML VIAL ONE (00:05)
[2021-02-03] MEDS ORDERED: HALOPERIDOL LACTATE 5 MG/ML 1 ML VIAL IV PRN ×2 (00:06→17:02)
[2021-02-03] MEDS ORDERED: HALOPERIDOL LACTATE 5 MG/ML 1 ML VIAL IM STA (00:13)
[2021-02-03] MEDS ORDERED: HALOPERIDOL LACTATE 5 MG/ML 1 ML VIAL IM PRN ×2 (00:17)
[2021-02-03] MEDS: LABETALOL HCL IV 5 MG/ML 20ML IV PRN ×2 (03:56→23:30)
[2021-02-03 04:32] LABS: Amphetamines+Metham, Urine Neg (Neg); Barbiturates, Urine Neg (Neg); Benzodiazepine, Urine Neg (Neg); Cocaine, Urine Neg (Neg); MDMA (Ecstacy), Urine Neg (Neg); Methadone, Urine Neg (Neg); Opiate, Urine Neg (Neg); Phencyclidine, Urine Neg (Neg)
[2021-02-03 07:17] LABS: Basophils # (auto) 0.02 K/uL (0-0.2); Basophils % (auto) 0.4 %; Hematocrit (blood only) 31.1 % (37-47); Hemoglobin 10.4 g/dL (12.0-16.0); Immature Granulocytes # (auto) 0.01 K/uL (0.00-0.02); Immature Granulocytes % (auto) 0.2 %; Lymphocytes # (auto) 0.83 K/uL (1.2-3.4); Lymphocytes % (auto) 17.7 %; Mean Corpuscular Hgb Conc 33.4 g/dL (32-36); Mean Corpuscular Volume 83.6 fL (80-100); Mean Platelet Volume 8.9 fL (7.4-10.4); Monocytes % (auto) 6.4 %; Neutrophils # (auto) 3.54 K/uL (1.4-6.5); Neutrophils % (auto) 75.3 %; Platelet Count 249 K/uL (130-400); RDW Coefficient of Variation 13.8 % (11.5-14.5); RDW Standard Deviation 41.6 fL (36.4-46.3); Red Blood Count 3.72 M/uL (4.2-5.4)
--- NOTE | 2021-02-03 07:27 | Electrocardiogram Report ---
Test Reason : Blood Pressure : / mmHG Vent. Rate : 071 BPM Atrial Rate : 071 BPM P-R Int : 166 ms QRS Dur : 082 ms QT Int : 404 ms P-R-T Axes : 071 045 058 degrees QTc Int : 439 ms Poor data quality, interpretation may be adversely affected Normal sinus rhythm Normal ECG When compared with ECG of 10-SEP-2020 13:09, Prior tracing too poor quality to compare Confirmed by Glynn Andujar ([id number]) on 02/03/2021 7:26:51 AM Referred By: Wesley Heartskyler Confirmed By:Glynn Andujar
[2021-02-03 07:35] LABS: Calcium 8.5 mg/dl (8.5-10.1); Creatinine Clr Calc Pharmacy 42.2 ml/min; Est GFR (African American) 45.4 ml/min; Est GFR (Non-African American) 39.2 ml/min; Potassium 4.2 mmol/L (3.5-5.1)
[2021-02-03] MEDS: NICOTINE 21 MG/24 HR TDSY TD SCH (08:03)
[2021-02-03] MEDS: HEPARIN SOD 5,000 UNIT/0.5 ML VIAL SQ SCH ×2 (08:07→20:02)
--- NOTE | 2021-02-03 08:14 | Hospitalist Progress Note ---
Date of Service February 03, 2021 Assessment & Plan (1) Altered mental status: Plan: Delirium vs. medication induced delirium vs. 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 Although technically age indeterminate, this is likely chronic. * Consider Repeat head CT scan for any acute changes for DASH (delayed onset subdural hematoma) post falls * CT cervical spine without evidence of acute fracture or subluxation but does note posterior disc osteophyte complexes at C3-C4, C4-C5, and C5-C6 may contribute to mild acquired compromise of the central canal. There is mild multilevel disc space narrowing, greatest at C5-C6. * MRI brain pending given continued status, however did get Haldol 15mg since admission via IV/IM * Consider c/w Neurology if rest of work-up negative, ?LP TSH, B12 wnl Drug screen negative, however reportedly on xanax BID at [facility], ? withdrawal. Patient is catatonic. Hx possible clavicular abscess/mediastinitis (CT September w/ Inflammatory change extends inferiorly from the right sternoclavicular joint within the presternal soft tissues and also within the retrosternal soft tissues posterior to the manubrium. This places the patient at risk for developing mediastinitis. gas and fluid containing fluid collection seen above the right clavicular head. This closely approximates the dermal surface and is consistent with developing abscess. and evidence of septic arthritis. 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 diffusely tender to palpation abd exam --> CT chest, A/P, R femur pending --> ECHO pending Adding ESR/CRP to AM labs, if further elevated consider empirically starting abx LR but add bicarb as low on AM labs, acidotic possible medication related from antipsychotics due to agitation Maintain 1:1 for safety Continue to monitor (2) DMII (diabetes mellitus, type 2): Plan: Continue with bolus insulin until mentation improves to ensure adequate PO intake Clears for now as tolerated (3) H/O: HTN (hypertension): Plan: Continue with metoprolol - IV labatelol support as needed for severe HTN --> would need moved to tele Will add hydralazine as needed for now (4) GERD (gastroesophageal reflux disease): Plan: Continue with protonix 40 PO daily; change to IV if unable to take PO Will order IV for today to limit PO unless able to take moving forward (5) Bipolar 1 disorder: Plan: As above, continue mood stabilizing medications Xanax and gabapentin held --> may also be contributing to worsening pain/withdrawal Consult psych to assist with reinstitution/eval Admission and Anticipated Discharge Date Admission Date: February 02, 2021 Subjective Patient evaluated this morning. Agitated with staff requiring Haldol. Awake but not answering questions. Denied any ROS but unable to answer questions. Painful with palpation of stomach, R stump (with abrasion and erythema) as well as her R clavicle. No tremors appreciated but moving all around the bed. 1:1 maintained and state she has been like that much of the morning. Yelling out at times but not really answering in the way of any questioning. Review of Systems Review of Systems: Unobtainable due to cognitive status Physical Exam Physical Exam: PHYSICAL EXAM: General: Awake but not alert or oriented, not answering any questions Head: normocephalic,small L facial brusing ENT: dry mm, trachea midline without deviation Resp: not tachypneic, no acute respiratory distress or accessory muscle use. Bibasilar crackles, no wheezing appreciated. On room air 99% CV: tachycardia, no murmurs appreciated however heart sounds sound distant. no edema appreciated however patient with b/l BKA (abrasian to R stump, eschar and erythema and patient wincing when palpated). chest tender to palpation across mediastinum GI: +BS, tender to palpation diffusely, no guarding or rigidity appreciated : no eddy Ext: b/l BKA (abrasion as above R stump). R clavicle w step off and pain to palpation AC joint Psych: alert, but not oriented. pupils equal and reactive to light. moving all extremities. no focal deficits appreciated Results & Data Results & Data ([facility]) Vital Signs (Past 12 Hours) Vital Signs Temp Pulse Pulse Resp BP BP Pulse Ox 02/03/21 07:45 36.7 C 101 H 18 166/90 H 96 08/28/21 03:50 37.1 C 110 H 18 211/94 H 95 02/03/21 00:00 77 02/02/21 20:22 37.6 C H 80 18 147/98 H 97 Laboratory Results 02/03/21 02/03/21 02/03/21 Range/Units 07:07 07:07 07:07 WBC 4.70 L (4.8-10.8) K/uL RBC 3.72 L (4.2-5.4) M/uL Hgb 10.4 L (12.0-16.0) g/dL Hct 31.1 L (37-47) % MCV 83.6 (80-100) fL MCH 28.0 (25-34) pg MCHC 33.4 (32-36) g/dL RDW Std Deviation 41.6 (36.4-46.3) fL RDW Coeff of Luis 13.8 (11.5-14.5) % Plt Count 249 (130-400) K/uL MPV 8.9 (7.4-10.4) fL Immature Gran % (Auto) 0.2 % Neut % (Auto) 75.3 % Lymph % (Auto) 17.7 % [place] % (Auto) 6.4 % Eos % (Auto) 0.0 % Baso % (Auto) 0.4 % Neut # (Auto) 3.54 (1.4-6.5) K/uL Lymph # (Auto) 0.83 L (1.2-3.4) K/uL [place] # (Auto) 0.30 (0.11-0.59) K/uL Eos # (Auto) 0.00 (0-0.5) K/uL Baso # (Auto) 0.02 (0-0.2) K/uL Immature Gran # (Auto) 0.01 (0.00-0.02) K/uL Sodium 141 (136-145) mmol/L Potassium 4.2 D (3.5-5.1) mmol/L Chloride 114 H (98-107) mmol/L Carbon Dioxide 19 L (21-32) mmol/L Anion Gap 8.0 (3-11) BUN 30 H (7-18) mg/dl Creatinine 1.48 H (0.6-1.2) mg/dl Est Cr Clr Drug Dosing 42.2 ml/min Est GFR ( Amer) 45.4 ml/min Est GFR (Non-Af Amer) 39.2 ml/min BUN/Creatinine Ratio 20.0 (10-20) Glucose 181 H (70-99) mg/dl POC Glucose (70-99) mg/dl Calcium 8.5 (8.5-10.1) mg/dl Magnesium 2.0 (1.8-2.4) mg/dl Total Bilirubin (0.2-1) mg/dl AST (15-37) U/L ALT (12-78) U/L Alkaline Phosphatase (45-117) U/L Troponin I (0-0.045) ng/ml Total Protein (6.4-8.2) gm/dl Albumin (3.4-5.0) gm/dl Globulin (2.5-4.0) gm/dl Albumin/Globulin Ratio (0.9-2) Vitamin B12 Pending TSH (0.300-4.500) uIu/ml Urine Color Urine Appearance (Clear) Urine pH (4.5-7.5) Ur Specific [place] (1.000-1.030) Urine Protein (Negative) Urine Glucose (UA) (Negative) Urine Ketones (Negative) Urine Blood (Negative) Urine Nitrite (Negative) Urine Bilirubin (Negative) Urine Urobilinogen (Negative) Ur Leukocyte Esterase (Negative) Urine WBC (Auto) (0-5) /hpf Urine RBC (Auto) (0-4) /hpf U Hyaline Cast (Auto) (0-5) /lpf U Epithel Cells (Auto) (0-5) /lpf Urine Bacteria (Auto) (Negative) Nasal Screen MRSA (PCR) (Negative) Urine Opiates Screen (Neg) Ur Methadone, Qual (Neg) Urine Barbiturates (Neg) Ur Phencyclidine (PCP) (Neg) U Amphetamin/Meth Scrn (Neg) MDMA (Ecstasy) Screen (Neg) U Benzodiazepines Scrn (Neg) Ur Cocaine Metabolite (Neg) U Marijuana (THC) Screen (Neg) COVID-19 Eval Order SARS-CoV-2 (PCR) (Negative) 02/03/21 02/03/21 02/02/21 Range/Units 03:50 03:50 18:39 WBC (4.8-10.8) K/uL RBC (4.2-5.4) M/uL Hgb (12.0-16.0) g/dL Hct (37-47) % MCV (80-100) fL MCH (25-34) pg MCHC (32-36) g/dL RDW Std Deviation (36.4-46.3) fL RDW Coeff of Luis (11.5-14.5) % Plt Count (130-400) K/uL MPV (7.4-10.4) fL Immature Gran % (Auto) % Neut % (Auto) % Lymph % (Auto) % [place] % (Auto) % Eos % (Auto) % Baso % (Auto) % Neut # (Auto) (1.4-6.5) K/uL Lymph # (Auto) (1.2-3.4) K/uL [place] # (Auto) (0.11-0.59) K/uL Eos # (Auto) (0-0.5) K/uL Baso # (Auto) (0-0.2) K/uL Immature Gran # (Auto) (0.00-0.02) K/uL Sodium (136-145) mmol/L Potassium (3.5-5.1) mmol/L Chloride (98-107) mmol/L Carbon Dioxide (21-32) mmol/L Anion Gap (3-11) BUN (7-18) mg/dl Creatinine (0.6-1.2) mg/dl Est Cr Clr Drug Dosing ml/min Est GFR ( Amer) ml/min Est GFR (Non-Af Amer) ml/min BUN/Creatinine Ratio (10-20) Glucose (70-99) mg/dl POC Glucose 160 H (70-99) mg/dl Calcium (8.5-10.1) mg/dl Magnesium (1.8-2.4) mg/dl Total Bilirubin (0.2-1) mg/dl AST (15-37) U/L ALT (12-78) U/L Alkaline Phosphatase (45-117) U/L Troponin I (0-0.045) ng/ml Total Protein (6.4-8.2) gm/dl Albumin (3.4-5.0) gm/dl Globulin (2.5-4.0) gm/dl Albumin/Globulin Ratio (0.9-2) Vitamin B12 TSH (0.300-4.500) uIu/ml Urine Color Urine Appearance (Clear) Urine pH (4.5-7.5) Ur Specific [place] (1.000-1.030) Urine Protein (Negative) Urine Glucose (UA) (Negative) Urine Ketones (Negative) Urine Blood (Negative) Urine Nitrite (Negative) Urine Bilirubin (Negative) Urine Urobilinogen (Negative) Ur Leukocyte Esterase (Negative) Urine WBC (Auto) (0-5) /hpf Urine RBC (Auto) (0-4) /hpf U Hyaline Cast (Auto) (0-5) /lpf U Epithel Cells (Auto) (0-5) /lpf Urine Bacteria (Auto) (Negative) Nasal Screen MRSA (PCR) Negative (Negative) Urine Opiates Screen Neg (Neg) Ur Methadone, Qual Neg (Neg) Urine Barbiturates Neg (Neg) Ur Phencyclidine (PCP) Neg (Neg) U Amphetamin/Meth Scrn Neg (Neg) MDMA (Ecstasy) Screen Neg (Neg) U Benzodiazepines Scrn Neg (Neg) Ur Cocaine Metabolite Neg (Neg) U Marijuana (THC) Screen Neg (Neg) COVID-19 Eval Order SARS-CoV-2 (PCR) (Negative) 02/02/21 02/02/21 02/02/21 Range/Units 18:32 18:32 11:10 WBC (4.8-10.8) K/uL RBC (4.2-5.4) M/uL Hgb (12.0-16.0) g/dL Hct (37-47) % MCV (80-100) fL MCH (25-34) pg MCHC (32-36) g/dL RDW Std Deviation (36.4-46.3) fL RDW Coeff of Luis (11.5-14.5) % Plt Count (130-400) K/uL MPV (7.4-10.4) fL Immature Gran % (Auto) % Neut % (Auto) % Lymph % (Auto) % [place] % (Auto) % Eos % (Auto) % Baso % (Auto) % Neut # (Auto) (1.4-6.5) K/uL Lymph # (Auto) (1.2-3.4) K/uL [place] # (Auto) (0.11-0.59) K/uL Eos # (Auto) (0-0.5) K/uL Baso # (Auto) (0-0.2) K/uL Immature Gran # (Auto) (0.00-0.02) K/uL Sodium 139 (136-145) mmol/L Potassium 5.0 (3.5-5.1) mmol/L Chloride 111 H (98-107) mmol/L Carbon Dioxide 24 (21-32) mmol/L Anion Gap 4.0 (3-11) BUN 35 H (7-18) mg/dl Creatinine 1.65 H (0.6-1.2) mg/dl Est Cr Clr Drug Dosing 38.3 ml/min Est GFR ( Amer) 39.8 ml/min Est GFR (Non-Af Amer) 34.3 ml/min BUN/Creatinine Ratio 21.2 H (10-20) Glucose 152 H (70-99) mg/dl POC Glucose (70-99) mg/dl Calcium 8.8 (8.5-10.1) mg/dl Magnesium (1.8-2.4) mg/dl Total Bilirubin 0.2 (0.2-1) mg/dl AST 35 (15-37) U/L ALT 18 (12-78) U/L Alkaline Phosphatase 145 H (45-117) U/L Troponin I < 0.015 (0-0.045) ng/ml Total Protein 8.1 (6.4-8.2) gm/dl Albumin 2.7 L (3.4-5.0) gm/dl Globulin 5.4 H (2.5-4.0) gm/dl Albumin/Globulin Ratio 0.5 L (0.9-2) Vitamin B12 TSH 2.760 (0.300-4.500) uIu/ml Urine Color Urine Appearance (Clear) Urine pH (4.5-7.5) Ur Specific [place] (1.000-1.030) Urine Protein (Negative) Urine Glucose (UA) (Negative) Urine Ketones (Negative) Urine Blood (Negative) Urine Nitrite (Negative) Urine Bilirubin (Negative) Urine Urobilinogen (Negative) Ur Leukocyte Esterase (Negative) Urine WBC (Auto) (0-5) /hpf Urine RBC (Auto) (0-4) /hpf U Hyaline Cast (Auto) (0-5) /lpf U Epithel Cells (Auto) (0-5) /lpf Urine Bacteria (Auto) (Negative) Nasal Screen MRSA (PCR) (Negative) Urine Opiates Screen (Neg) Ur Methadone, Qual (Neg) Urine Barbiturates (Neg) Ur Phencyclidine (PCP) (Neg) U Amphetamin/Meth Scrn (Neg) MDMA (Ecstasy) Screen (Neg) U Benzodiazepines Scrn (Neg) Ur Cocaine Metabolite (Neg) U Marijuana (THC) Screen (Neg) COVID-19 Eval Order Covid19 at [facility] SARS-CoV-2 (PCR) NEGATIVE (Negative) 02/02/21 02/02/21 02/02/21 Range/Units 11:10 10:15 09:35 WBC 6.24 (4.8-10.8) K/uL RBC 4.21 (4.2-5.4) M/uL Hgb 11.8 L (12.0-16.0) g/dL Hct 35.7 L (37-47) % MCV 84.8 (80-100) fL MCH 28.0 (25-34) pg MCHC 33.1 (32-36) g/dL RDW Std Deviation 42.1 (36.4-46.3) fL RDW Coeff of Luis 13.9 (11.5-14.5) % Plt Count 261 (130-400) K/uL MPV 9.2 (7.4-10.4) fL Immature Gran % (Auto) 0.8 % Neut % (Auto) 67.1 % Lymph % (Auto) 19.4 % [place] % (Auto) 10.4 % Eos % (Auto) 1.8 % Baso % (Auto) 0.5 % Neut # (Auto) 4.19 (1.4-6.5) K/uL Lymph # (Auto) 1.21 (1.2-3.4) K/uL [place] # (Auto) 0.65 H (0.11-0.59) K/uL Eos # (Auto) 0.11 (0-0.5) K/uL Baso # (Auto) 0.03 (0-0.2) K/uL Immature Gran # (Auto) 0.05 H (0.00-0.02) K/uL Sodium (136-145) mmol/L Potassium (3.5-5.1) mmol/L Chloride (98-107) mmol/L Carbon Dioxide (21-32) mmol/L Anion Gap (3-11) BUN (7-18) mg/dl Creatinine (0.6-1.2) mg/dl Est Cr Clr Drug Dosing ml/min Est GFR ( Amer) ml/min Est GFR (Non-Af Amer) ml/min BUN/Creatinine Ratio (10-20) Glucose (70-99) mg/dl POC Glucose 180 H (70-99) mg/dl Calcium (8.5-10.1) mg/dl Magnesium (1.8-2.4) mg/dl Total Bilirubin (0.2-1) mg/dl AST (15-37) U/L ALT (12-78) U/L Alkaline Phosphatase (45-117) U/L Troponin I (0-0.045) ng/ml Total Protein (6.4-8.2) gm/dl Albumin (3.4-5.0) gm/dl Globulin (2.5-4.0) gm/dl Albumin/Globulin Ratio (0.9-2) Vitamin B12 TSH (0.300-4.500) uIu/ml Urine Color Yellow Urine Appearance Clear (Clear) Urine pH 7.5 (4.5-7.5) Ur Specific [place] 1.013 (1.000-1.030) Urine Protein 2+ H (Negative) Urine Glucose (UA) 1+ H (Negative) Urine Ketones Negative (Negative) Urine Blood Trace H (Negative) Urine Nitrite Negative (Negative) Urine Bilirubin Negative (Negative) Urine Urobilinogen Negative (Negative) Ur Leukocyte Esterase Negative (Negative) Urine WBC (Auto) 0 (0-5) /hpf Urine RBC (Auto) 5-10 H (0-4) /hpf U Hyaline Cast (Auto) 0 (0-5) /lpf U Epithel Cells (Auto) 0-5 (0-5) /lpf Urine Bacteria (Auto) Negative (Negative) Nasal Screen MRSA (PCR) (Negative) Urine Opiates Screen (Neg) Ur Methadone, Qual (Neg) Urine Barbiturates (Neg) Ur Phencyclidine (PCP) (Neg) U Amphetamin/Meth Scrn (Neg) MDMA (Ecstasy) Screen (Neg) U Benzodiazepines Scrn (Neg) Ur Cocaine Metabolite (Neg) U Marijuana (THC) Screen (Neg) COVID-19 Eval Order SARS-CoV-2 (PCR) (Negative) PG Care Time/CCT Total # of Minutes Spent Total Time Spent with Patient: Total time spent is greater than 50% in coordination of care (as documented) at patient's floor/unit and/or counseling patient: Coding Level of Care Code 26297 Subseq Hosp Care Lvl 3 Diagnoses Altered mental status R41.82 Altered mental status type: unspecified DMII (diabetes mellitus, type 2) E11.9 H/O: HTN (hypertension) Z86.79 GERD (gastroesophageal reflux disease) K21.9 Bipolar 1 disorder F31.9 (1) Altered mental status Altered mental status type: unspecified Qualified Code(s): R41.82 - Altered mental status, unspecified
[2021-02-03] MEDS: INSULIN ASPART 100 UNITS/ML 3 ML PEN SC SCH ×4 (08:20→20:17)
[2021-02-03] MEDS: LACTATED RINGER S IV SCH (08:42)
[2021-02-03] MEDS: SODIUM BICARBONATE IV SCH (08:42)
[2021-02-03] MEDS ORDERED: hydrALAZINE HCL 20 MG/ML VIAL IV ONE (09:54)
[2021-02-03] MEDS ORDERED: ALPRAZolam 0.5 MG TABLET PO STA (11:38)
[2021-02-03] MEDS ORDERED: OPTIRAY 320 100ml IV ONE (12:13)
[2021-02-03] MEDS: TOPIRAMATE 25 MG TAB PO SCH (13:02)
[2021-02-03] MEDS: SODIUM BICARBONATE 650 MG TAB PO SCH ×3 (13:02→20:05)
[2021-02-03] MEDS: amLODIPine BESYLATE 5 MG TAB PO SCH (13:03)
[2021-02-03] MEDS: QUEtiapine FUMARATE 25 MG TABLET PO SCH ×2 (13:03→20:06)
[2021-02-03] MEDS: OXcarbazepine 150 MG TABLET PO SCH ×2 (13:03→20:04)
[2021-02-03] MEDS: BUPRENORPHINE/NALOXONE 8/2 MG TAB SL SCH (13:07)
[2021-02-03] MEDS: ESCITALOPRAM OXALATE 20 MG TAB PO SCH (13:07)
--- NOTE | 2021-02-03 13:18 | CT Scan Report ---
CT SCAN OF THE ABDOMEN AND PELVIS WITHOUT IV CONTRAST CLINICAL HISTORY: Generalized abdominal pain. Change in mental status. COMPARISON STUDY: Abdominal CT dated 09/10/2020. TECHNIQUE: CT scan of the abdomen and pelvis is performed from the lung bases to the proximal femora. Images are reviewed in the axial, sagittal, and coronal planes. IV contrast was not administered for this examination as per the referring clinician. Note that the examination was performed in suboptim al fashion without oral and IV contrast. There is also motion artifact, as well as streak artifact fr om the arms which could not be elevated above the abdomen. A dose lowering technique was utilized adh ering to the principles of ALARA. CT DOSE: 900.06 mGycm FINDINGS: Lung bases: The heart is normal in size and without pericardial effusion. The coronary arteries are d ensely calcified. The lung bases are clear. There is a tiny hiatal hernia. Liver: Evaluation of the liver is degraded by streak artifact. The unenhanced liver is grossly normal in size, contour, and attenuation. There is no intrahepatic biliary ductal dilatation. Gallbladder: Surgically absent noting clips in the gallbladder fossa. Spleen: Normal in size and attenuation. Pancreas: The unenhanced pancreas is moderately atrophic and grossly unremarkable. Adrenal glands: Unremarkable. Kidneys: The unenhanced kidneys are normal in size and without hydronephrosis. There are no renal asaf culi identified. There is no evidence of contour deforming renal mass lesion. Abdominal vasculature: The abdominal aorta is normal in course and caliber noting mild to moderate at herosclerotic calcification. Bowel: There is rectosigmoid fecal retention and moderate to severe constipation. No bowel obstructio n is identified. The appendix is not visualized. Peritoneum: There is no intraperitoneal free air or abdominal ascites. Lymphadenopathy: None. Pelvic viscera: The bladder is normal as visualized. The uterus is surgically absent. No adnexal lesi on is seen. Skeletal structures: The skeletal structures are osteopenic. There are bilateral pars defects at L5 w ith grade 1 anterolisthesis and disc space narrowing at L5-S1. No lytic or blastic lesions are seen. IMPRESSION: 1. Suboptimal examination bilateral and IV contrast. There is also streak and motion artifact. 2. There are no acute infectious or inflammatory findings seen in the abdomen or pelvis. 3. Rectosigmoid fecal retention and moderate to severe constipation. 4. Additional findings as above. ACT 112: Negative or not required by law. Electronically signed by: Erik Martinez M.D. 02/03/2021 1:17 PM
[2021-02-03] MEDS ORDERED: SOD PHOSPHATE/SOD BIPHOSPHATE ENEMA 132 ML BTL PR STA (13:37)
[2021-02-03 13:45] LABS: Lyme Ab IgG w/WB Rflx Negative (Negative); Lyme Ab IgM w/WB Rflx Negative (Negative)
[2021-02-03] MEDS ORDERED: PIPERACILL/TAZOBAC CONSULT ACTIVE PRN (14:00)
[2021-02-03] MEDS ORDERED: PIPERACILLIN/TAZOBACTAM 3.375 GM in DEXTROSE 5% 100 ML IV ONE (14:45)
[2021-02-03] MEDS: DAPTOmycin 300 MG in SYRINGE 0 ML IV SCH (15:25)
--- NOTE | 2021-02-03 15:43 | CT Scan Report ---
CT SCAN OF THE CHEST COMBO CLINICAL HISTORY: Change in mental status. History of clavicular abscess. COMPARISON STUDY: Chest CT dated 09/10/2020. TECHNIQUE: Before and following the IV administration of 94 cc of Optiray 320, CT scan of the thorax was performed from the thoracic inlet to the upper abdomen. Images are reviewed in the axial, sagitta l, and coronal planes. IV contrast was administered without complication. A dose lowering technique was utilized adhering to the principles of ALARA. The examination is compromised by motion artifact. CT DOSE: 1216.68 mGycm FINDINGS: Thyroid: Imaged portions of the thyroid gland are normal in size and attenuation. Thoracic aorta: There is mild atherosclerotic calcification of the thoracic aorta, which is normal in caliber and demonstrates standard 3-vessel arch anatomy. No dissection is seen. Pulmonary vasculature: The pulmonary trunk is normal in caliber. There are no filling defects identif ied in the central pulmonary vessels to indicate pulmonary embolus. Note that this examination was no t protocoled for evaluation of the pulmonary arteries. Heart: The heart is normal in size and without pericardial effusion. The coronary arteries are densel y calcified. Lungs and pleural spaces: Evaluation of the lung parenchyma is compromised by motion artifact. Scarri ng/atelectasis is present at both lung bases. There is no lobar consolidation or pleural effusion. Th e trachea and central airways are clear. Minimal patchy groundglass opacities are seen in the right l ower lobe on image #88. Mediastinum: There is no mediastinal lymphadenopathy. Fadia: Clear. Axillae: There is no axillary lymphadenopathy. Upper abdomen: The spleen is enlarged measuring 13.9 cm in length. There is a wedge-shaped perfusion defect in the superior aspect of the spleen, best seen on axial image #26. Cholecystectomy clips are noted. There is a small hiatal hernia. Skeletal structures: The skeletal structures are osteopenic. Degenerative change and hyperkyphosis ar e noted in the thoracic spine. No lytic or blastic bony lesions are seen. Sclerotic change is noted a t the right sternoclavicular joint with a small amount of fluid in the joint space. Soft tissue thick ening overlies the right sternoclavicular joint. The soft tissue abscess seen on 09/10/2020 has resolve d. IMPRESSION: 1. Significantly motion compromised examination. 2. There is no lobar consolidation or pleural effusion. 3. Minimal patchy ground glass opacities in the superior segment of the right lower lobe are likely i nfectious/inflammatory. Clinical correlation will be required. 4. The spleen is enlarged, and there is a wedge-shaped perfusion defect in the superior spleen seen o n the postcontrast series. This may represent a small splenic infarct. Correlate for left upper quadr ant pain. 5. Sclerotic change is noted at the right sternoclavicular joint. There is fluid within the joint spa ce and overlying soft tissue thickening. This may represent post infectious change, and the organized fluid collection/abscess seen on 09/10/2020 has resolved. Correlate clinically for evidence of recurre nt/residual infection. 6. Additional findings as above. ACT 112: Negative or not required by law. Electronically signed by: Erik Martinez M.D. 02/03/2021 3:41 PM
--- NOTE | 2021-02-03 15:44 | XCELERA ---
[id number] \\[id number]
--- NOTE | 2021-02-03 16:34 | Communication Note ---
Date of Service: February 03, 2021 Patient is unable to participate in interview, likely still experiencing delirium. Review of medications shows multiple sedating medications that are potentially contributing to clinical picture of altered mental status. In the setting of delirium we can hold some of these medications in order to further clear up her mental status. Please continue to administer Lexapro 20 mg p.o. every morning, Trileptal 150 mg twice daily Please hold the following medications: Xanax 0.25 mg p.o. twice daily, Topamax 25 p.o. every morning, Seroquel 25 mg p.o. twice daily Please utilize Haldol 2 mg IV every 2 hours as needed for agitation. Max dose no more than 10 mg With regards to pain control, patient is currently taking Suboxone and may enter withdrawal if not otherwise given opioid therapy. Please continue to administer Suboxone if no other opioids are being administered. Suboxone will decrease the ability of other opioids to work. Gabapentin, and baclofen are 2 other medications that the patient likely takes for pain. Pain can be assessed and given on an as needed basis.
[2021-02-03] MEDS ORDERED: MoRPHine SULFATE 2 MG/ML CARP IV STA (17:01)
--- NOTE | 2021-02-03 19:26 | CT Scan Report ---
CT SCAN OF THE RIGHT FEMUR WITHOUT IV CONTRAST CLINICAL HISTORY: Change in mental status. Stump wound. COMPARISON STUDY: No priors. TECHNIQUE: CT scan of the right lower extremity is performed from the bony pelvis to the resection ma rgin/stump of the right proximal tibia and fibula. Images are reviewed in the axial, sagittal, ans co frank planes. IV contrast was not missed report for this examination. Note that the examination was p erformed in suboptimal fashion without IV contrast. Interpretation is also suboptimal without plain f ilm correlate. A dose lowering technique was utilized adhering to the principles of ALARA. FINDINGS: The skeletal structures are osteopenic. There is no evidence of right femoral fracture. The re is no evidence of avascular necrosis of the femoral head. Mild degenerative change is noted in the right hip joint with no significant effusion. The visualized bony pelvis appears intact. There is no fracture seen involving the proximal tibia or fibula. There is an amputation of the right lower extr emity at the level of the proximal tibial and fibular shaft. Surgical clips are seen within the adjac ent soft tissues. Question of focal erosive change in the distal tibia at the resection margin, best seen on image #[id number]. No erosive change is suggested in the distal fibula. Benign appearing periostitis is noted in the tibial shaft. There is generalized atrophy of the regional musculature. Dermal thick ening is noted at the stump with a small amount of subcutaneous fluid. There is no evidence of organi zed fluid collection on this unenhanced examination. No soft tissue gas is identified. The bladder wa ll appears thickened. The uterus is surgically absent. No pelvic sidewall or inguinal adenopathy is i dentified. IMPRESSION: 1. No osseous abnormality is seen involving the right femur. 2. 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 3. Question focal erosive change in the distal tibia at the resection margin. Osteomyelitis is not ex cluded and clinical correlation will be required. Consider radiographic correlation. 4. Dermal thickening is seen in the stump at the resection margin with associated subcutaneous fluid. Correlate for evidence of cellulitis. There is no organized/drainable fluid collection seen on this unenhanced examination to suggest abscess. 5. The bladder wall appears circumferentially thickened. Correlate with urinalysis. ACT 112: Negative or not required by law. Dictated: 02/03/2021 5:02 PM Transcribed: 02/03/2021 7:19 PM Sofía [id number] [email or web address] Electronically signed by: Erik Martinez M.D. 02/03/2021 7:25 PM
--- NOTE | 2021-02-03 20:47 | Consultation Report ---
DATE OF SERVICE: 02/02/2021 The patient is 55 years old. She was sent here from an outside institution for mental status changes . I was consulted to see her regarding her right sternoclavicular joint area. The patient is a poor historian. Apparently back in September, she may have had a sternoclavicular joint abscess. We do not have any additional records here. She provides no additional historical informa tion. She is afebrile. Her pulse rate is elevated. Her blood pressure is high. Her white count is 5. Sed rate is 87. CRP is 2.88. I reviewed the CT scan back in September and it showed a fluid collec tion with some air in the right sternoclavicular joint area. The report indicated that this went pre sternal and substernal as well. The CT scan today shows no evidence of osteomyelitis. The prior simon nges are absent. There is no evidence of fluid collection and no fracture. The patient has a histor y of diabetes and bipolar 1 disorder. PHYSICAL EXAMINATION: She is lying with her arms over her head. She does not respond to questions ve rbally other than to give me permission to examine her arm by nodding her head. She does follow comm ands to move her arms down to her side and left them up over her head. She has 2 well-healed surgica l incisions, one just at the sternal notch vertically and the other over the distal portion of the st ernoclavicular joint. There is no erythema, induration, or drainage. There is no apparent tendernes s or crepitation or instability of the sternoclavicular area. The examination is benign. My assumption is that the findings from September precipitated the transfer to a facility where a cardiac surgeon may have worked on her to treat this infection. Today, this area is benign in appearance a nd the process looks to be resolved. Please let me know if I can be of any further assistance, but I do not think any intervention is nece ssary for the right sternoclavicular joint area at this time. Job ID: [id number]
[2021-02-03] MEDS: PIPERACILLIN/TAZOBACTAM 3.375 GM in DEXTROSE 5% 100 ML IV SCH (21:49)
[2021-02-04] MEDS: METOPROLOL SUCC 50MG EXT REL TAB PO SCH ×3 (02:23→17:13)
[2021-02-04] MEDS: SODIUM BICARBONATE IV SCH (03:34)
[2021-02-04] MEDS: LACTATED RINGER S IV SCH (03:34)
[2021-02-04] MEDS: LABETALOL HCL IV 5 MG/ML 20ML IV PRN (04:29)
[2021-02-04] MEDS: PIPERACILLIN/TAZOBACTAM 3.375 GM in DEXTROSE 5% 100 ML IV SCH ×3 (05:15→21:06)
[2021-02-04 06:56] LABS: Basophils # (auto) 0.01 K/uL (0-0.2); Basophils % (auto) 0.3 %; Hematocrit (blood only) 29.7 % (37-47); Immature Granulocytes # (auto) 0.02 K/uL (0.00-0.02); Immature Granulocytes % (auto) 0.5 %; Lymphocytes # (auto) 0.71 K/uL (1.2-3.4); Lymphocytes % (auto) 18.5 %; Mean Corpuscular Hgb Conc 33.7 g/dL (32-36); Mean Corpuscular Volume 83.2 fL (80-100); Mean Platelet Volume 8.6 fL (7.4-10.4); Monocytes # (auto) 0.45 K/uL (0.11-0.59); Monocytes % (auto) 11.7 %; Neutrophils # (auto) 2.64 K/uL (1.4-6.5); Platelet Count 247 K/uL (130-400); RDW Coefficient of Variation 13.8 % (11.5-14.5); RDW Standard Deviation 41.4 fL (36.4-46.3); Red Blood Count 3.57 M/uL (4.2-5.4); White Blood Count 3.83 K/uL (4.8-10.8)
[2021-02-04 07:28] LABS: Calcium 8.6 mg/dl (8.5-10.1); Creatinine Clr Calc Pharmacy 50.7 ml/min; Est GFR (African American) 56.8 ml/min; Magnesium 1.6 mg/dl (1.8-2.4)
[2021-02-04] MEDS ORDERED: hydrALAZINE HCL 20 MG/ML VIAL IV PRN (08:01)
--- NOTE | 2021-02-04 08:03 | Hospitalist Progress Note ---
Date of Service February 04, 2021 Assessment & Plan (1) Altered mental status: Plan: Initially thought delirium vs. medication induced delirium vs. post concussion (multiple falls reported) however could be combination from concussion/fall/possible aspiration given RLL findings Elevation of concern for infectious etiology given her history and prior admission , currently with further elevated inflammatory markers during ER w clavicular abscess/concerns for mediastinitis and was transferred to [place] at that time ?Aspiration pneumonia after being altered at [facility] possibly due to medications/YARY on admit On admission, held Xanax, baclofen, gabapentin on admission (may be contributing to a withdrawal, UDS was negative on admission however she is to be getting this BID -- she states today that she had been getting these) CT head without acute findings, but did note hypodensity within the posterior limb of the left internal capsule. Although technically age indeterminate, this is likely chronic. * Consider Repeat head CT scan for any acute changes for DASH (delayed onset subdural hematoma) post falls * CT cervical spine without evidence of acute fracture or subluxation but does note posterior disc osteophyte complexes at C3-C4, C4-C5, and C5-C6 may cont ribute to mild acquired compromise of the central canal. There is mild multilevel disc space narrowing, greatest at C5-C6. * MRI brain pending given continued status, however did get Haldol 15mg since admission via IV/IM * Consider c/w Neurology if rest of work-up negative, ?LP TSH, B12 wnl Drug screen negative, however reportedly on xanax BID at [facility], ? withdrawal. Patient is catatonic-- resumed ECHO with normal LV size/function. EF 60-65%. no wma. mild concentric LVH. Normal ERVSP.No comparison ESR 87, CRP 2.88 Vanco/Zosyn for empiric coverage started 02/03 Has not received any further haldol --> had gotten 15mg IM/IV from 02/02-02/03AM for agitation and was quite sedate/agitated/yelling 02/03 and 1:1 maintained for safety PATIENT IS BACK TO BASELINE MENTALLY AFTERNOON 02/04 RESUMING GABAPENTIN (CHRONIC and avoiding withdrawal)-- states she had been on for years and withdrawal in past not pleasant Now that alert/oriented, advance diet as tolerated with aspiration precautions CT Chest with patchy ground glass RLL infectious/inflammatory ?if altered d/t meds, then possible aspiration?. Aspiration precautions to be maintained CTAP with mod-severe fecal retention. does note possible small splenic infarct. not overly tender, hgb stable on continuous IVF. 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 noted microvascular changes -- attempt to keep BP better controlled (currently w headache but did just get back from MRI brain as well, giving dose of Benadryl x 1) CT Femur --- cellulitis possible, no abscess. ?osteo. Xray femur completed without evidence of bony destruction YARY on admission --> cr improving and 1.23 on AM labs. Can d/c IVF this evening if eating/drinking without issue (removed bicarb as added yesterday for acidosis). No lactic on admit Continue Vanco/Zosyn (day 2) BCx NGTD -- monitor IVF replacement --> bicarb now normal and discontinued from fluids. 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, Mag 1.6 and received replacement -- continue to monitor Consider discontinuing 1:1 if remains stable through evening (2) DMII (diabetes mellitus, type 2): Plan: Continue with bolus insulin until mentation improves to ensure adequate PO intake Clears for now as tolerated --> advancing as tolerated Tightened correction factor Continue to monitor (3) H/O: HTN (hypertension): Plan: Continue with metoprolol (resumed evening 02/03) BP 178/87 this morning but has headache and currently 192/95 -- getting dose of benadryl but also resuming her usual gabapentin, topiramate Continue to monitor IV labatelol support as needed for severe HTN (4) GERD (gastroesophageal reflux disease): Plan: Continue with protonix 40 PO daily which was ordered as IV to ensure taking as she did spit some pills out yesterday as well Switch back to PO tomorrow (5) Bipolar 1 disorder: Plan: As above, continue mood stabilizing medications Xanax and gabapentin held --> may also be contributing to worsening pain/withdrawal and these were able to be resumed today Consult psych to assist with reinstitution/eval -- haldol as needed by reduced dose. Has not needed any further Resuming home medications as above Continue to monitor Naloxone on hold as did get some morphine. Would continue to hold and utilize prn if needed but will resume her naloxone now that pain better controlled. *If needing to use IV pain control, hold naloxone to prevent precipitation of withdrawal Heparin SQ for DVT prophylaxis Plan: Resident Clay Continue Zosyn/Vanco for now Admission and Anticipated Discharge Date Admission Date: February 03, 2021 Subjective Less agitated with staff and more cooperative with care. Still having her moments, yelling out at times. Has not required any further haldol, and is being maintained on her seroquel/topiramate. Given dose of pain medication and suboxone held and appears more comfortable. Not able to get ahold of daughter on multiple calls from multiple providers/CM. Going for MRI brain given AMS and some abn findings on prior CT. Messaged ortho to review films for femur given possible concerns for osteo/infection. Given prior infxn, continues on Dapto/Zosyn for empiric coverage. No fevers. Has been SR on telemetry. Taking pills today. Seen this afternoon --> COMPLETE 180 DEGREES. Patient awake, alert, pleasant and cooperative. Some pain to her abdomen and noted she did have shortness of breath over past couple weeks. She notes she was in hospital before and sent to [place] where she had a cardiothoracic surgeon drain abscess and had received antibiotics. She noted she had a bandage to her RLE and thinks they may have drained something but no one ever let her know results. Discussed xray without evidence of osteomyelitis. Imaging of brain without acute stroke. She notes a lot of her pain is from neuropathy, which she takes gabapentin for but has not gotten since admission. Discussed resuming this to prevent withdrawal -- she states someone stopped them abruptly in the past but she doesn't want to say who. No fever, chills, chest pain, breathing stable, minimal abdominal discomfort and has not had a bowel movement yet, no nausea/vomiting. Taking pills without issues/no choking. Advancing diet per discussion with nursing but with aspiration precautions given her possible R lobe pneumonia. Does have a slight headache and discussed giving something now while awaiting the gabapentin. Will use benadryl. Questions/concerns addressed at this time. Review of Systems Review of Systems: All systems reviewed & are unremarkable except as noted in HPI & below Physical Exam Physical Exam: PHYSICAL EXAM: General: Awake, alert, oriented. answering questions appropriately. speech intact. no evidence for TD/tongue smacking/rolling ENT: slightly dry mm, improved. pupils equal, reactive Trachea midline without deviation Chest: healed incision R clavicle, non-tender, no drainage Resp: not tachypneic, no cough, bibasilar crackles, RML crackles. no wheezing. 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 draining Ext: b/l BKA (abrasion R stump), R clavicle w step off, healed previous incision without evidence of drainage, non-tender to palpation Neuro: no focal deficit noted, moving all extremities Results & Data Results & Data ([facility]) Vital Signs (Past 12 Hours) Vital Signs Temp Pulse Pulse Pulse Resp BP Pulse Ox 02/04/21 07:05 37.2 C 90 18 178/87 H 95 02/04/21 05:00 181/86 H 02/04/21 03:28 37 C 96 H 18 201/98 H 97 02/04/21 01:35 105 H 210/75 H 02/04/21 00:09 108 H 194/72 H 02/03/21 23:53 95 H 197/91 H 02/03/21 23:30 200/99 H 02/03/21 23:23 211/114 H 02/03/21 23:11 37.3 C 96 H 16 197/104 H 97 02/03/21 22:20 106 H Laboratory Results 02/04/21 02/04/21 02/04/21 Range/Units 07:10 06:40 06:40 WBC 3.83 L (4.8-10.8) K/uL RBC 3.57 L (4.2-5.4) M/uL Hgb 10.0 L (12.0-16.0) g/dL Hct 29.7 L (37-47) % MCV 83.2 (80-100) fL MCH 28.0 (25-34) pg MCHC 33.7 (32-36) g/dL RDW Std Deviation 41.4 (36.4-46.3) fL RDW Coeff of Luis 13.8 (11.5-14.5) % Plt Count 247 (130-400) K/uL MPV 8.6 (7.4-10.4) fL Immature Gran % (Auto) 0.5 % Neut % (Auto) 69.0 % Lymph % (Auto) 18.5 % [place] % (Auto) 11.7 % Eos % (Auto) 0.0 % Baso % (Auto) 0.3 % Neut # (Auto) 2.64 (1.4-6.5) K/uL Lymph # (Auto) 0.71 L (1.2-3.4) K/uL [place] # (Auto) 0.45 (0.11-0.59) K/uL Eos # (Auto) 0.00 (0-0.5) K/uL Baso # (Auto) 0.01 (0-0.2) K/uL Immature Gran # (Auto) 0.02 (0.00-0.02) K/uL ESR (0-30) mm/hr Sodium 141 (136-145) mmol/L Potassium 3.0 L D (3.5-5.1) mmol/L Chloride 111 H (98-107) mmol/L Carbon Dioxide 22 (21-32) mmol/L Anion Gap 8.0 (3-11) BUN 26 H (7-18) mg/dl Creatinine 1.23 H (0.6-1.2) mg/dl Est Cr Clr Drug Dosing 50.7 ml/min Est GFR ( Amer) 56.8 ml/min Est GFR (Non-Af Amer) 49.0 ml/min BUN/Creatinine Ratio 21.0 H (10-20) Glucose 176 H (70-99) mg/dl POC Glucose 189 H (70-99) mg/dl Calcium 8.6 (8.5-10.1) mg/dl Magnesium 1.6 L (1.8-2.4) mg/dl C-Reactive Protein (0-0.29) mg/dl Vitamin B12 (193-986) pg/ml Nasal Screen MRSA (PCR) (Negative) Lyme Disease IgG Ab (Negative) Lyme Disease IgM Ab (Negative) 02/03/21 02/03/21 02/03/21 Range/Units 20:11 17:35 16:29 WBC (4.8-10.8) K/uL RBC (4.2-5.4) M/uL Hgb (12.0-16.0) g/dL Hct (37-47) % MCV (80-100) fL MCH (25-34) pg MCHC (32-36) g/dL RDW Std Deviation (36.4-46.3) fL RDW Coeff of Luis (11.5-14.5) % Plt Count (130-400) K/uL MPV (7.4-10.4) fL Immature Gran % (Auto) % Neut % (Auto) % Lymph % (Auto) % [place] % (Auto) % Eos % (Auto) % Baso % (Auto) % Neut # (Auto) (1.4-6.5) K/uL Lymph # (Auto) (1.2-3.4) K/uL [place] # (Auto) (0.11-0.59) K/uL Eos # (Auto) (0-0.5) K/uL Baso # (Auto) (0-0.2) K/uL Immature Gran # (Auto) (0.00-0.02) K/uL ESR (0-30) mm/hr Sodium (136-145) mmol/L Potassium (3.5-5.1) mmol/L Chloride (98-107) mmol/L Carbon Dioxide (21-32) mmol/L Anion Gap (3-11) BUN (7-18) mg/dl Creatinine (0.6-1.2) mg/dl Est Cr Clr Drug Dosing ml/min Est GFR ( Amer) ml/min Est GFR (Non-Af Amer) ml/min BUN/Creatinine Ratio (10-20) Glucose (70-99) mg/dl POC Glucose 140 H 176 H (70-99) mg/dl Calcium (8.5-10.1) mg/dl Magnesium (1.8-2.4) mg/dl C-Reactive Protein (0-0.29) mg/dl Vitamin B12 (193-986) pg/ml Nasal Screen MRSA (PCR) Negative (Negative) Lyme Disease IgG Ab (Negative) Lyme Disease IgM Ab (Negative) 02/03/21 02/03/2102/03/21 Range/Units 11:22 07:52 07:07 WBC (4.8-10.8) K/uL RBC (4.2-5.4) M/uL Hgb (12.0-16.0) g/dL Hct (37-47) % MCV (80-100) fL MCH (25-34) pg MCHC (32-36) g/dL RDW Std Deviation (36.4-46.3) fL RDW Coeff of Luis (11.5-14.5) % Plt Count (130-400) K/uL MPV (7.4-10.4) fL Immature Gran % (Auto) % Neut % (Auto) % Lymph % (Auto) % [place] % (Auto) % Eos % (Auto) % Baso % (Auto) % Neut # (Auto) (1.4-6.5) K/uL Lymph # (Auto) (1.2-3.4) K/uL [place] # (Auto) (0.11-0.59) K/uL Eos # (Auto) (0-0.5) K/uL Baso # (Auto) (0-0.2) K/uL Immature Gran # (Auto) (0.00-0.02) K/uL ESR (0-30) mm/hr Sodium (136-145) mmol/L Potassium (3.5-5.1) mmol/L Chloride (98-107) mmol/L Carbon Dioxide (21-32) mmol/L Anion Gap (3-11) BUN (7-18) mg/dl Creatinine (0.6-1.2) mg/dl Est Cr Clr Drug Dosing ml/min Est GFR ( Amer) ml/min Est GFR (Non-Af Amer) ml/min BUN/Creatinine Ratio (10-20) Glucose (70-99) mg/dl POC Glucose 198 H 186 H (70-99) mg/dl Calcium (8.5-10.1) mg/dl Magnesium (1.8-2.4) mg/dl C-Reactive Protein 2.88 H (0-0.29) mg/dl Vitamin B12 (193-986) pg/ml Nasal Screen MRSA (PCR) (Negative) Lyme Disease IgG Ab (Negative) Lyme Disease IgM Ab (Negative) 02/03/21 02/03/21 02/03/21 Range/Units 07:07 07:07 07:07 WBC (4.8-10.8) K/uL RBC (4.2-5.4) M/uL Hgb (12.0-16.0) g/dL Hct (37-47) % MCV (80-100) fL MCH (25-34) pg MCHC (32-36) g/dL RDW Std Deviation (36.4-46.3) fL RDW Coeff of Luis (11.5-14.5) % Plt Count (130-400) K/uL MPV (7.4-10.4) fL Immature Gran % (Auto) % Neut % (Auto) % Lymph % (Auto) % [place] % (Auto) % Eos % (Auto) % Baso % (Auto) % Neut # (Auto) (1.4-6.5) K/uL Lymph # (Auto) (1.2-3.4) K/uL [place] # (Auto) (0.11-0.59) K/uL Eos # (Auto) (0-0.5) K/uL Baso # (Auto) (0-0.2) K/uL Immature Gran # (Auto) (0.00-0.02) K/uL ESR 87 H (0-30) mm/hr Sodium (136-145) mmol/L Potassium (3.5-5.1) mmol/L Chloride (98-107) mmol/L Carbon Dioxide (21-32) mmol/L Anion Gap (3-11) BUN (7-18) mg/dl Creatinine (0.6-1.2) mg/dl Est Cr Clr Drug Dosing ml/min Est GFR ( Amer) ml/min Est GFR (Non-Af Amer) ml/min BUN/Creatinine Ratio (10-20) Glucose (70-99) mg/dl POC Glucose (70-99) mg/dl Calcium (8.5-10.1) mg/dl Magnesium (1.8-2.4) mg/dl C-Reactive Protein (0-0.29) mg/dl Vitamin B12 512 (193-986) pg/ml Nasal Screen MRSA (PCR) (Negative) Lyme Disease IgG Ab Negative (Negative) Lyme Disease IgM Ab Negative (Negative) 02/02/21 Range/Units 21:17 WBC (4.8-10.8) K/uL RBC (4.2-5.4) M/uL Hgb (12.0-16.0) g/dL Hct (37-47) % MCV (80-100) fL MCH (25-34) pg MCHC (32-36) g/dL RDW Std Deviation (36.4-46.3) fL RDW Coeff of Luis (11.5-14.5) % Plt Count (130-400) K/uL MPV (7.4-10.4) fL Immature Gran % (Auto) % Neut % (Auto) % Lymph % (Auto) % [place] % (Auto) % Eos % (Auto) % Baso % (Auto) % Neut # (Auto) (1.4-6.5) K/uL Lymph # (Auto) (1.2-3.4) K/uL [place] # (Auto) (0.11-0.59) K/uL Eos # (Auto) (0-0.5) K/uL Baso # (Auto) (0-0.2) K/uL Immature Gran # (Auto) (0.00-0.02) K/uL ESR (0-30) mm/hr Sodium (136-145) mmol/L Potassium (3.5-5.1) mmol/L Chloride (98-107) mmol/L Carbon Dioxide (21-32) mmol/L Anion Gap (3-11) BUN (7-18) mg/dl Creatinine (0.6-1.2) mg/dl Est Cr Clr Drug Dosing ml/min Est GFR ( Amer) ml/min Est GFR (Non-Af Amer) ml/min BUN/Creatinine Ratio (10-20) Glucose (70-99) mg/dl POC Glucose 174 H (70-99) mg/dl Calcium (8.5-10.1) mg/dl Magnesium (1.8-2.4) mg/dl C-Reactive Protein (0-0.29) mg/dl Vitamin B12 (193-986) pg/ml Nasal Screen MRSA (PCR) (Negative) Lyme Disease IgG Ab (Negative) Lyme Disease IgM Ab (Negative) Diagnostic Findings Chest CT 02/03/21 11:17 CT SCAN OF THE CHEST COMBO CLINICAL HISTORY: Change in mental status. History of clavicular abscess. COMPARISON STUDY: Chest CT dated 09/10/2020. TECHNIQUE: Before and following the IV administration of 94 cc of Optiray 320, CT scan of the thorax was performed from the thoracic inlet to the upper abdomen. Images are reviewed in the axial, sagittal, and coronal planes. IV contrast was administered without complication. A dose lowering technique was utilized adhering to the principles of ALARA. The examination is compromised by motion artifact. CT DOSE: 1216.68 mGycm FINDINGS: Thyroid: Imaged portions of the thyroid gland are normal in size and attenuation. Thoracic aorta: There is mild atherosclerotic calcification of the thoracic aorta, which is normal in caliber and demonstrates standard 3-vessel arch anatomy. No dissection is seen. Pulmonary vasculature: The pulmonary trunk is normal in caliber. There are no filling defects identified in the central pulmonary vessels to indicate pulmonary embolus. Note that this examination was not protocoled for evaluation of the pulmonary arteries. Heart: The heart is normal in size and without pericardial effusion. The coronary arteries are densely calcified. Lungs and pleural spaces: Evaluation of the lung parenchyma is compromised by motion artifact. Scarring/atelectasis is present at both lung bases. There is no lobar consolidation or pleural effusion. The trachea and central airways are clear. Minimal patchy groundglass opacities are seen in the right lower lobe on image #88. Mediastinum: There is no mediastinal lymphadenopathy. Fadia: Clear. Axillae: There is no axillary lymphadenopathy. Upper abdomen: The spleen is enlarged measuring 13.9 cm in length. There is a wedge-shaped perfusion defect in the superior aspect of the spleen, best seen on axial image #26. Cholecystectomy clips are noted. There is a small hiatal hernia. Skeletal structures: The skeletal structures are osteopenic. Degenerative change and hyperkyphosis are noted in the thoracic spine. No lytic or blastic bony lesions are seen. Sclerotic change is noted at the right sternoclavicular joint with a small amount of fluid in the joint space. Soft tissue thickening overlies the right sternoclavicular joint. The soft tissue abscess seen on 09/10/2020 has resolved. IMPRESSION: 1. Significantly motion compromised examination. 2. There is no lobar consolidation or pleural effusion. 3. Minimal patchy ground glass opacities in the superior segment of the right lower lobe are likely infectious/inflammatory. Clinical correlation will be required. 4. The spleen is enlarged, and there is a wedge-shaped perfusion defect in the superior spleen seen on the postcontrast series. This may represent a small splenic infarct. Correlate for left upper quadrant pain. 5. Sclerotic change is noted at the right sternoclavicular joint. There is fluid within the joint space and overlying soft tissue thickening. This may represent post infectious change, and the organized fluid collection/abscess seen on 09/10/2020 has resolved. Correlate clinically for evidence of recurrent/residual infection. 6. Additional findings as above. ACT 112: Negative or not required by law. Electronically signed by: Erik Martinez M.D. 02/03/2021 3:[address] 02/03/21 11:35 CT SCAN OF THE RIGHT FEMUR WITHOUT IV CONTRAST CLINICAL HISTORY: Change in mental status. Stump wound. COMPARISON STUDY: No priors. TECHNIQUE: CT scan of the right lower extremity is performed from the bony pelvis to the resection margin/stump of the right proximal tibia and fibula. Images are reviewed in the axial, sagittal, ans coronal planes. IV contrast was not missed report for this examination. Note that the examination was performed in suboptimal fashion without IV contrast. Interpretation is also suboptimal without plain film correlate. A dose lowering technique was utilized adhering to the principles of ALARA. FINDINGS: The skeletal structures are osteopenic. There is no evidence of right femoral fracture. There is no evidence of avascular necrosis of the femoral head. Mild degenerative change is noted in the right hip joint with no significant effusion. The visualized bony pelvis appears intact. There is no fracture seen involving the proximal tibia or fibula. There is an amputation of the right lower extremity at the level of the proximal tibial and fibular shaft. Surgical clips are seen within the adjacent soft tissues. Question of focal erosive change in the distal tibia at the resection margin, best seen on image #653. No erosive change is suggested in the distal fibula. Benign appearing periostitis is noted in the tibial shaft. There is generalized atrophy of the regional musculature. Dermal thickening is noted at the stump with a small amount of subcutaneous fluid. There is no evidence of organized fluid collection on this unenhanced examination. No soft tissue gas is identified. The bladder wall appears thickened. The uterus is surgically absent. No pelvic sidewall or inguinal adenopathy is identified. IMPRESSION: 1. No osseous abnormality is seen involving the right femur. 2. 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 3. Question focal erosive change in the distal tibia at the resection margin. Osteomyelitis is not excluded and clinical correlation will be required. Consider radiographic correlation. 4. Dermal thickening is seen in the stump at the resection margin with associated subcutaneous fluid. Correlate for evidence of cellulitis. There is no organized/drainable fluid collection seen on this unenhanced examination to suggest abscess. 5. The bladder wall appears circumferentially thickened. Correlate with urinalysis. ACT 112: Negative or not required by law. Dictated: 02/03/2021 5:02 PM Transcribed: 02/03/2021 7:19 PM Sofía [id number] [email or web address] Electronically signed by: Erik Mratinez M.D. 02/03/2021 7:25 PM Brain MRI 02/04/21 11:28 Brain MRI WITHOUT CONTRAST HISTORY: Altered mental status. TECHNIQUE: Multiplanar multisequence MRI of the brain was performed without the use of contrast. COMPARISON STUDY: Head CT 02/02/2021. FINDINGS: There is no mass, hematoma, midline shift, or acute infarct. The paranasal sinuses are clear. The mastoid air cells are clear. The ventricles and sulci demonstrate mild age-related involutional changes. Scattered foci of T2 hyperintensity seen within the periventricular and subcortical white matter are nonspecific but suggestive of mild microvascular ischemic changes. The major vascular flow voids at the skull base are well-maintained. Old lacunar infarct seen within the right basal ganglia and left internal capsule posterior limb. IMPRESSION: No acute intracranial abnormality. Scattered foci of T2 hyperintensity seen within the periventricular and subcortical white matter are nonspecific but favor microvascular ischemic change. ACT 112: Negative or not required by law. Electronically signed by: Rome Shelton M.D. 02/04/2021 1:23 PM Femur X-Ray 02/04/21 12:20 XR femur RT 2V routine CLINICAL HISTORY: Right lower leg pain. Assess for osteomyelitis. COMPARISON STUDY: Right femur CT 02/03/2021. FINDINGS: There are postoperative changes consistent with a right below the knee amputation. No fracture or dislocation within the right femur. There are surgical clips at the tibial stump. No definite erosive change at the distal tibial stump to suggest an osteomyelitis. The bones are osteopenic. No knee effusion. Mild soft tissue thickening at the distal tibial stump. IMPRESSION: No erosive changes within the femur or tibial stump to suggest an osteomyelitis. ACT 112: Negative or not required by law. Electronically signed by: Rome Shelton M.D. 02/04/2021 1:29 PM PG Care Time/CCT Total # of Minutes Spent Total Time Spent with Patient: Total time spent is greater than 50% in coordination of care (as documented) at patient's floor/unit and/or counseling patient: Coding Level of Care Code 97334 Subseq Hosp Care Lvl 3 Diagnoses Altered mental status R41.82 Altered mental status type: unspecified DMII (diabetes mellitus, type 2) E11.9 H/O: HTN (hypertension) Z86.79 GERD (gastroesophageal reflux disease) K21.9 Bipolar 1 disorder F31.9 (1) Altered mental status Altered mental status type: unspecified Qualified Code(s): R41.82 - Altered mental status, unspecified
[2021-02-04] MEDS: HEPARIN SOD 5,000 UNIT/0.5 ML VIAL SQ SCH ×2 (08:15→21:12)
[2021-02-04] MEDS: NICOTINE 21 MG/24 HR TDSY TD SCH (08:16)
[2021-02-04] MEDS: OXcarbazepine 150 MG TABLET PO SCH ×2 (08:17→21:14)
[2021-02-04] MEDS: SODIUM BICARBONATE 650 MG TAB PO SCH ×3 (08:17→21:16)
[2021-02-04] MEDS: amLODIPine BESYLATE 5 MG TAB PO SCH (08:17)
[2021-02-04] MEDS: ESCITALOPRAM OXALATE 20 MG TAB PO SCH (08:17)
[2021-02-04] MEDS: INSULIN ASPART 100 UNITS/ML 3 ML PEN SC SCH ×4 (08:17→21:14)
[2021-02-04] MEDS: QUEtiapine FUMARATE 25 MG TABLET PO SCH ×2 (08:17→21:15)
[2021-02-04] MEDS ORDERED: POTASSIUM CHLORIDE 20 MEQ/15 ML UDC PO ONE (08:30)
[2021-02-04] MEDS: NSS + 20MEQ KCL 20 MEQ/1,000 ML BAG IV SCH ×2 (09:03→22:31)
[2021-02-04] MEDS: MAGNESIUM SULFATE / D5W 1 GM/100 ML BAG IV SCH ×2 (09:04→11:08)
[2021-02-04] MEDS: PANTOprazole 40 MG in SYRINGE 0 ML IV SCH (11:09)
--- NOTE | 2021-02-04 13:24 | Magnetic Resonance Report ---
Brain MRI WITHOUT CONTRAST HISTORY: Altered mental status. TECHNIQUE: Multiplanar multisequence MRI of the brain was performed without the use of contrast. COMPARISON STUDY: Head CT 02/02/2021. FINDINGS: There is no mass, hematoma, midline shift, or acute infarct. The paranasal sinuses are flor r. The mastoid air cells are clear. The ventricles and sulci demonstrate mild age-related involutiona l changes. Scattered foci of T2 hyperintensity seen within the periventricular and subcortical white matter are nonspecific but suggestive of mild microvascular ischemic changes. The major vascular flow voids at the skull base are well-maintained. Old lacunar infarct seen within the right basal ganglia and left internal capsule posterior limb. IMPRESSION: No acute intracranial abnormality. Scattered foci of T2 hyperintensity seen within the periventricula r and subcortical white matter are nonspecific but favor microvascular ischemic change. ACT 112: Negative or not required by law. Electronically signed by: Rome Shelton M.D. 02/04/2021 1:23 PM
--- NOTE | 2021-02-04 13:30 | XRay Report ---
XR femur RT 2V routine CLINICAL HISTORY: Right lower leg pain. Assess for osteomyelitis. COMPARISON STUDY: Right femur CT 02/03/2021. FINDINGS: There are postoperative changes consistent with a right below the knee amputation. No fract ure or dislocation within the right femur. There are surgical clips at the tibial stump. No definite erosive change at the distal tibial stump to suggest an osteomyelitis. The bones are osteopenic. No k nee effusion. Mild soft tissue thickening at the distal tibial stump. IMPRESSION: No erosive changes within the femur or tibial stump to suggest an osteomyelitis. ACT 112: Negative or not required by law. Electronically signed by: Rome Shelton M.D. 02/04/2021 1:29 PM
[2021-02-04] MEDS: DAPTOmycin 300 MG in SYRINGE 0 ML IV SCH (14:41)
[2021-02-04] MEDS ORDERED: diphenhydrAMINE 50 MG/ML VIAL IV STA (15:09)
[2021-02-04] MEDS: GABAPENTIN 300 MG CAP PO SCH ×2 (15:38→21:12)
[2021-02-04] MEDS: ALPRAZolam 0.25 MG TABLET PO SCH (21:08)
[2021-02-04] MEDS: BACLOFEN 10 MG TAB PO SCH (21:09)
[2021-02-04] MEDS: BUPRENORPHINE/NALOXONE 8/2 MG TAB SL SCH (21:10)
[2021-02-05] MEDS: PIPERACILLIN/TAZOBACTAM 3.375 GM in DEXTROSE 5% 100 ML IV SCH ×3 (04:54→20:46)
[2021-02-05 06:08] LABS: Basophils # (auto) 0.03 K/uL (0-0.2); Basophils % (auto) 0.9 %; Eosinophils # (auto) 0.03 K/uL (0-0.5); Eosinophils % (auto) 0.9 %; Hematocrit (blood only) 29.2 % (37-47); Hemoglobin 9.6 g/dL (12.0-16.0); Immature Granulocytes # (auto) 0.02 K/uL (0.00-0.02); Immature Granulocytes % (auto) 0.6 %; Lymphocytes # (auto) 1.37 K/uL (1.2-3.4); Lymphocytes % (auto) 39.1 %; Mean Corpuscular Hemoglobin 28.1 pg (25-34); Mean Corpuscular Hgb Conc 32.9 g/dL (32-36); Mean Corpuscular Volume 85.4 fL (80-100); Mean Platelet Volume 8.7 fL (7.4-10.4); Monocytes # (auto) 0.53 K/uL (0.11-0.59); Monocytes % (auto) 15.1 %; Neutrophils # (auto) 1.52 K/uL (1.4-6.5); Neutrophils % (auto) 43.4 %; Platelet Count 206 K/uL (130-400); RDW Coefficient of Variation 14.2 % (11.5-14.5); Red Blood Count 3.42 M/uL (4.2-5.4)
[2021-02-05 06:38] LABS: C Reactive Protein 1.02 mg/dl (0-0.29); Calcium 7.7 mg/dl (8.5-10.1); Creatinine Clr Calc Pharmacy 42.7 ml/min; Est GFR (African American) 46.5 ml/min; Est GFR (Non-African American) 40.2 ml/min; Magnesium 2.3 mg/dl (1.8-2.4); Potassium 3.3 mmol/L (3.5-5.1)
[2021-02-05] MEDS: METOPROLOL SUCC 50MG EXT REL TAB PO SCH ×2 (08:27→17:57)
[2021-02-05] MEDS: GABAPENTIN 300 MG CAP PO SCH ×3 (08:28→20:22)
[2021-02-05] MEDS: FOLIC ACID 1 MG TAB PO SCH (08:28)
[2021-02-05] MEDS: BACLOFEN 10 MG TAB PO SCH ×3 (08:28→20:21)
[2021-02-05] MEDS: amLODIPine BESYLATE 5 MG TAB PO SCH (08:28)
[2021-02-05] MEDS: ESCITALOPRAM OXALATE 20 MG TAB PO SCH (08:28)
[2021-02-05] MEDS: ALPRAZolam 0.25 MG TABLET PO SCH ×2 (08:28→20:20)
[2021-02-05] MEDS: BUPRENORPHINE/NALOXONE 8/2 MG TAB SL SCH ×2 (08:28→20:20)
[2021-02-05] MEDS: HEPARIN SOD 5,000 UNIT/0.5 ML VIAL SQ SCH ×2 (08:29→20:22)
[2021-02-05] MEDS: OXcarbazepine 150 MG TABLET PO SCH ×2 (08:29→20:24)
[2021-02-05] MEDS: NICOTINE 21 MG/24 HR TDSY TD SCH (08:29)
[2021-02-05] MEDS: SODIUM BICARBONATE 650 MG TAB PO SCH ×3 (08:29→20:26)
[2021-02-05] MEDS: QUEtiapine FUMARATE 25 MG TABLET PO SCH ×2 (08:29→20:25)
[2021-02-05] MEDS: TOPIRAMATE 25 MG TAB PO SCH (08:30)
[2021-02-05] MEDS: POTASSIUM CHLORIDE CRTAB 20 MEQ TABCR PO SCH (08:30)
[2021-02-05] MEDS: INSULIN ASPART 100 UNITS/ML 3 ML PEN SC SCH ×4 (08:37→20:41)
[2021-02-05] MEDS: NSS + 20MEQ KCL 20 MEQ/1,000 ML BAG IV SCH (10:39)
[2021-02-05] MEDS: PANTOprazole 40 MG in SYRINGE 0 ML IV SCH (10:39)
--- NOTE | 2021-02-05 11:02 | Progress Notes ---
I was asked to see the patient again regarding her right BKA wound. She reports having a wound on th e anterior portion of her BKA stump for a couple of months secondary to crawling on the leg. She is today much more awake, pleasant, alert, etc. This wound is superficial. It is about 1.5 cm2 located over the anterior aspect of the distal tibial stump. It has an Optifoam over top of it. There is n o surrounding erythema. There is no exposed bone. The wound does not go deeper than the dermis. Th ere is no induration, erythema or drainage. I reviewed her femur x-ray and CT scan. These show unco mplicated below-knee amputation. There are several phill in place. There is no evidence of bone i nfection. I would treat this with local wound care. Avoid pressure on this area and do not crawl on the stump. Recommend a wound care consultation for wound care plan. Job ID: [id number]
--- NOTE | 2021-02-05 12:26 | Hospitalist Progress Note ---
Date of Service February 05, 2021 Assessment & Plan (1) Altered mental status: Plan: Initially thought delirium vs. medication-induced delirium vs. post-concussion (multiple falls reported). Possibly now considered infectious encephalopathy. - Infection also a concern as she reports prior infection of the right sternoclavicular joint. - Presently on dapto/Zosyn since 02/03 - Presently consideration for infection is possible RLL infection findings (possible aspiration?) - Monitor blood cultures -> No growth as of 02/05 -> Stop daptomycin today. No indication of MRSA infection. MRSA nares swab negative x 2 this admission. (2) DMII (diabetes mellitus, type 2): Plan: No A1c in charts. - Blood sugars have been 110 - 210 in last 24 hours. -> Continue sliding scale insulin (3) H/O: HTN (hypertension): Plan: BP presently 130/70. - Continue home amlodipine & metoprolol - Labetalol PRN severe HTN (4) GERD (gastroesophageal reflux disease): Plan: - Continue pantoprazole 40 mg PO daily (5) Bipolar 1 disorder: Plan: Had multiple meds held on admission due to altered mental status, but have restarted as mental status is back to baseline. - Continue home alprazolam, escitalopram, Suboxone, gabapentin, oxcarbazepine, quetiapine, and topiramate (6) CKD (chronic kidney disease) stage 3, GFR 30-59 ml/min: Plan: Baseline Cr ~1.1 - 1.2. Presently with Cr of 1.4, so slightly above baseline. Slight rise possibly due to vanc/Zosyn abx. Does not appear hypovolemic. 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 Had to be sent to [facility] for debridement. - Evaluated by Dr. Lemon on 02/03 with thought that this was cleared and quiescent. - Also an erosion noted on CT of the right femur, but on x-ray, this was not noted, so also felt to be not infection. On exam on 02/05, her right BKA stump looks clean, healed, and non-erythematous. (8) DVT prophylaxis: Plan: Heparin 5,000 units SQ Q12h Admission and Anticipated Discharge Date Admission Date: February 03, 2021 Subjective Doing very well today. Reports minimal pain. No further confusion, though she admits she couldn't remember coming to the hospital. Reports no fevers/chills, chest pain, shortness of breath, abdominal pain, nausea, or vomiting. Physical Exam Constitutional: WD/WN, vitals as above Eyes: EOM intact bilaterally; no conjunctival abnormality ENMT: external ear and nose normal, oropharynx normal Neck: trachea midline, no thyromegaly normal visual inspection Respiratory: normal respiratory effort, lungs clear to auscultation no respiratory distress Cardiovascular: RRR, no murmur, no edema Gastrointestinal (Abdomen): Inspection/Auscultation: abdomen normal to inspection; abdomen not distended Musculoskeletal: Knee: + knee abnormal to inspection (Bilateral BKA) Skin: no rashes, warm and dry no erythema (None over right BKA stump) Neurologic: moves all extremities and awake Psychiatric: Orientation: alert, oriented to person and cooperative Results & Data Results & Data ([facility]) Vital Signs (Past 12 Hours) Vital Signs Temp Pulse Pulse Resp BP Pulse Ox 02/05/21 11:38 36.9 C 62 16 129/72 95 02/05/21 07:00 37.2 C 65 20 181/85 H 96 02/05/21 06:47 67 02/05/21 03:00 37 C 64 18 155/76 H 97 PG Care Time/CCT Total # of Minutes Spent Total Time Spent with Patient: Total time spent is greater than 50% in coordination of care (as documented) at patient's floor/unit and/or counseling patient: Coding Level of Care Code 16451 Subseq Hosp Care Lvl 3 Diagnoses Altered mental status R41.82 Altered mental status type: unspecified DMII (diabetes mellitus, type 2) E11.9 H/O: HTN (hypertension) Z86.79 GERD (gastroesophageal reflux disease) K21.9 Bipolar 1 disorder F31.9 Osteomyelitis M86.9 DVT prophylaxis Z29.9 CKD (chronic kidney disease) stage 3, GFR 30-59 ml/min N18.30 (1) Altered mental status Altered mental status type: unspecified Qualified Code(s): R41.82 - Altered mental status, unspecified
--- NOTE | 2021-02-05 12:39 | Psychiatric Consultation ---
Date of Consultation February 05, 2021 Impression / Recommendations Impression 55 yo female with history of bipolar disorder, AMS now resolved. (1) Bipolar 1 disorder: (2) Altered mental status: Altered mental status type: unspecified Qualified Code(s): R41.82 - Altered mental status, unspecified liaison to confirm follow up appointments. Reviewed with patient that I typically do not recommend combination of suboxone and benzos given drug drug interactions, controlled substance. She is under 65 but has a history of falls. Will defer ongoing management of her psychiatric medications to her outpatient prescriber. Monitor for orthostasis and sedation with Seroquel. There is no indication for inpatient psychiatric admission and patient is psychiatrically cleared to return to appropriate level of nursing care. Risk Factors Assessment Do You Have Access To A Gun?: No Psych History Identifying Data 55 yo female admit 02/02 from [facility] for AMS. Patient was unable to provide meaningful history at the time of initial consultation but case was reviewed by Dr. La. Chief Complaint "I feel so much better now". History of Present Illness Patient was admitted with unspecified delirium with recent falls, some of her psychoactive medications were held on admission. Was initially confused, pulling at IV site, low dose Haldol IV was recommended as prn should need (does not appear was administered on my chart review). By yesterday pm her mental status was felt to have returned to baseline. She is cooperative, feeding herself and is oriented now. She has been at [facility] for a few weeks and is amenable to returning there upon hospital discharge. She states her mood disorder has been well controlled given her medical circumstances on her longstanding medication regimen by Dr. Lisandro arellano [place] ([facility]). She is aware Xanax was held here and states that psychiatrist had ordered is discontinued some time ago but she has been receiving for most of past 20 years and finds it helpful for her adjustment to [facility] under the direction of Kee Camacho (name per PDMP). She admits to past misuse of prescription pain medications but suboxone was mainly for pain at this point. Past Psychiatric History Previous Psych History: bipolar disorder, denies chapincito or depression in past several years Outpatient Services: as above, consult is limited in scope as patient's AMS has resolved. Do You Have Access To A Gun?: No Allergies Allergy/AdvReac Type Severity Reaction Status Date / Time vancomycin AdvReac Unknown Unknown Unverified 09/10/20 14:31 Home Medications Medication Instructions Recorded Confirmed Type alprazolam 0.25 mg tablet (Xanax) 0.25 mg PO BID 09/10/20 02/02/21 History buprenorphine 8 mg-naloxone 2 mg 1 film SUBLINGUAL BID 09/10/20 02/02/21 History sublingual film (Suboxone) escitalopram oxalate 20 mg tablet 20 mg PO QAM 09/10/20 02/02/21 History (Lexapro) ferrous sulfate 325 mg (65 mg 325 mg PO QAM 09/10/20 02/02/21 History iron) tablet (Iron (ferrous sulfate)) folic acid 1 mg tablet 1 mg PO QAM 09/10/20 02/02/21 History gabapentin 300 mg capsule 300 mg PO TID 09/10/20 02/02/21 History (Neurontin) insulin lispro 100 unit/mL 0 unit SUBCUT .SLIDING SCALE 09/10/20 02/02/21 Hist ory subcutaneous pen (Humalog KwikPen (U-100) Insulin) metoprolol succinate 50 mg 50 mg PO BIDM 09/10/20 02/02/21 History tablet,extended release 24 hr (Toprol XL) nicotine 21 mg/24 hr daily 1 patch TRANSDERMAL QAM 09/10/20 02/02/21 History transdermal patch (Nicoderm CQ) oxcarbazepine 150 mg tablet 150 mg PO BID 09/10/20 02/02/21 History (Trileptal) topiramate 25 mg tablet (Topamax) 25 mg PO QAM 09/10/20 02/02/21 History amlodipine 5 mg tablet (Norvasc) 5 mg PO QAM 02/02/21 02/02/21 History baclofen 10 mg tablet 10 mg PO TID 02/02/21 02/02/21 History insulin glargine 100 unit/mL (3 10 unit SUBCUT HS 02/02/21 02/02/21 History mL) subcutaneous pen (Lantus Solostar U-100 Insulin) pantoprazole 40 mg tablet,delayed 40 mg PO DAILYBB 02/02/21 02/02/21 History release (Protonix) potassium chloride 20 mEq 20 meq PO QAM 02/02/21 02/02/21 History tablet,extended release (K-Tab) quetiapine 25 mg tablet (Seroquel) 25 mg PO BID 02/02/21 02/02/21 History sodium bicarbonate 650 mg tablet 650 mg PO TID 02/02/21 02/02/21 History Patient History Medical History Bipolar 1 disorder GERD (gastroesophageal reflux disease) H/O: HTN (hypertension) Osteomyelitis Pleural effusion Surgical History Hx of BKA Social History Smoking Status: Current every day smoker Current Living Situation: [facility] Feels Safe at Home: Yes Assistive Devices: None Physical Exam Psychiatric: Orientation: alert and oriented x 3 Apperance: appropriately dressed and appropriately groomed Eye Contact: good eye contact Motor Behavior: no abnormal motor movements Speech: normal rate/rhythm/volume of speech Affect: euthymic affect mood is "GOOD" Thought Process: goal directed thought process Thought Content: reality based without delusions Suicidal Thoughts: denies suicidal thoughts Homicidal Thoughts: denies homicidal thoughts Hallucinations: no auditory hallucinations and no visual hallucinations Cognition: attention grossly intact and language grossly intact Estimated Intelligence: consistent with education level Insight: + fair insight Judgement: + fair judgement Vital Signs (Past 24 Hours): Last Vital Signs Temp 36.9 C 02/05/21 11:38 Pulse 62 02/05/21 11:38 Resp 16 02/05/21 11:38 BP 129/72 02/05/21 11:38 Pulse Ox 95 02/05/21 11:38 Review of Systems All systems reviewed & are unremarkable except as noted in HPI & below Results & Data ([facility]) Medications Administered Alprazolam (Alprazolam 0.25 Mg Tablet) 0.25 mg PO BID [facility] Stop: 03/06/21 20:59 Last Admin: 02/05/21 08:28 Dose: 0.25 mg Documented by: [id number] Admin: 02/04/21 21:08 Dose: 0.25 mg Documented by: [id number] Amlodipine Besylate (Amlodipine Besylate 5 Mg Tab) 5 mg PO QAM [facility] Stop: 03/05/21 08:59 Last Admin: 02/05/21 08:28 Dose: 5 mg Documented by: [id number] Admin: 02/04/21 08:17 Dose: 5 mg Documented by: [id number] Admin: 02/03/21 13:03 Dose: 5 mg Documented by: [id number] Baclofen (Baclofen 10 Mg Tab) 10 mg PO TID [facility] Stop: 03/06/21 20:59 Last Admin: 02/05/21 08:28 Dose: 10 mg Documented by: [id number] Admin: 02/04/21 21:09 Dose: 10 mg Documented by: [id number] Buprenorphine/Naloxone (Buprenorphine/Naloxone 8/2 Mg Tab) 1 tab SL BID [facility] Stop: 03/05/21 08:59 Last Admin: 02/05/21 08:28 Dose: 1 tab Documented by: [id number] Admin: 02/04/21 21:10 Dose: 1 tab Documented by: [id number] Admin: 02/03/21 13:07 Dose: Not Given Documented by: [id number] Escitalopram Oxalate (Escitalopram Oxalate 20 Mg Tab) 20 mg PO QAM [facility] Stop: 03/05/21 08:59 Last Admin: 02/05/21 08:28 Dose: 20 mg Documented by: [id number] Admin: 02/04/21 08:17 Dose: 20 mg Documented by: [id number] Admin: 02/03/21 13:07 Dose: Not Given Documented by: [id number] Folic Acid (Folic Acid 1 Mg Tab) 1 mg PO QAM [facility] Stop: 03/07/21 08:59 Last Admin: 02/05/21 08:28 Dose: 1 mg Documented by: [id number] Gabapentin (Gabapentin 300 Mg Cap) 300 mg PO TID [facility] Stop: 03/06/21 15:09 Last Admin: 02/05/21 08:28 Dose: 300 mg Documented by: [id number] Admin: 02/04/21 21:12 Dose: 300 mg Documented by: [id number] Admin: 02/04/21 15:38 Dose: 300 mg Documented by: [id number] Heparin Sodium (Porcine) (Heparin Sod 5,000 Unit/0.5 Ml Vial) 5,000 units SQ Q12 [facility] Stop: 03/04/21 20:59 Last Admin: 02/05/21 08:29 Dose: 5,000 units Documented by: [id number] Admin: 02/04/21 21:12 Dose: 5,000 units Documented by: [id number] Admin: 02/04/21 08:15 Dose: 5,000 units Documented by: [id number] Admin: 02/03/21 20:02 Dose: 5,000 units Documented by: [id number] Admin: 02/03/21 08:07 Dose: 5,000 units Documented by: [id number] Admin: 02/02/21 22:03 Dose: 5,000 units Documented by: [id number] Pantoprazole Sodium 40 mg/ (Syringe) 10 mls @ 5 mls/min IV DAILY@1100 [facility] Stop: 03/06/21 10:59 Last Admin: 02/05/21 10:39 Dose: 5 mls/min Documented by: [id number] Admin: 02/04/21 11:09 Dose: 5 mls/min Documented by: [id number] Piperacillin Sod/Tazobactam (Sod 3.375 gm/ Dextrose) 115 mls @ 28.75 mls/hr IV Q8H [facility]; Protocol Stop: 02/06/21 23:59 Last Admin: 02/05/21 12:17 Dose: 28.8 mls/hr Documented by: [id number] Infusion: 02/05/21 08:54 Dose: 0 mls/hr Documented by: [id number] Admin: 02/05/21 04:54 Dose: 28.8 mls/hr Documented by: [id number] Infusion: 02/05/21 01:09 Dose: 0 mls/hr Documented by: [id number] Admin: 02/04/21 21:06 Dose: 28.8 mls/hr Documented by: [id number] Infusion: 02/04/21 18:54 Dose: 0 mls/hr Documented by: [id number] Admin: 02/04/21 14:40 Dose: 28.8 mls/hr Documented by: [id number] Infusion: 02/04/21 09:35 Dose: 0 mls/hr Documented by: [id number] Admin: 02/04/21 05:15 Dose: 28.8 mls/hr Documented by: [id number] Infusion: 02/04/21 02:04 Dose: 0 mls/hr Documented by: [id number] Admin: 02/03/21 21:49 Dose: 28.8 mls/hr Documented by: [id number] Potassium Chloride/Sodium Chloride (Normal Saline W/20 Meq Kcl) 20 meq in 1,000 mls @ 80 mls/hr IV .[id number] [facility] Stop: 03/06/21 07:59 Last Admin: 02/05/21 10:39 Dose: 80 mls/hr Documented by: [id number] Infusion: 02/05/21 10:39 Dose: 80 mls/hr Documented by: [id number] Admin: 02/04/21 22:31 Dose: 80 mls/hr Documented by: [id number] Infusion: 02/04/21 21:33 Dose: 80 mls/hr Documented by: [id number] Admin: 02/04/21 09:03 Dose: 80 mls/hr Documented by: [id number] Insulin Aspart (Insulin Aspart 100 Units/Ml 3 Ml Pen) 0 units SC ACHS [facility] Stop: 03/04/21 20:59 Last Admin: 02/05/21 12:16 Dose: 2 units Documented by: [id number] Cosigned by: [id number] Admin: 02/05/21 08:37 Dose: 4 units Documented by: [id number] Cosigned by: [id number] Admin: 02/04/21 21:14 Dose: Not Given Documented by: [id number] Cosigned by: [id number] Admin: 02/04/21 17:14 Dose: 3 units Documented by: [id number] Cosigned by: [id number] Admin: 02/04/21 12:07 Dose: 2 units Documented by: [id number] Cosigned by: [id number] Admin: 02/04/21 08:17 Dose: 1 units Documented by: [id number] Cosigned by: [id number] Admin: 02/03/21 20:17 Dose: Not Given Documented by: [id number] Cosigned by: [id number] Admin: 02/03/21 16:33 Dose: Not Given Documented by: [id number] Cosigned by: [id number] Admin: 02/03/21 13:02 Dose: 1 units Documented by: [id number] Cosigned by: [id number] Admin: 02/03/21 08:20 Dose: 1 units Documented by: [id number] Cosigned by: [id number] Admin: 02/02/21 22:04 Dose: Not Given Documented by: [id number] Labetalol HCl (Labetalol Hcl Iv 5 Mg/Ml 20ml) 10 mg IV Q4 PRN PRN Reason: HTN SBP >200 and/or DBP >110 Stop: 03/04/21 18:04 Last Admin: 02/04/21 04:29 Dose: 10 mg Documented by: [id number] Cosigned by: [id number] Admin: 02/03/21 23:30 Dose: 10 mg Documented by: [id number] Cosigned by: [id number] Admin: 02/03/21 03:56 Dose: 10 mg Documented by: [id number] Cosigned by: [id number] Metoprolol Succinate (Metoprolol Succ 50mg Ext Rel Tab) 50 mg PO BIDM [facility] Stop: 03/06/21 02:09 Last Admin: 02/05/21 08:27 Dose: 50 mg Documented by: [id number] Admin: 02/04/21 17:13 Dose: 50 mg Documented by: [id number] Admin: 02/04/21 08:17 Dose: 50 mg Documented by: [id number] Admin: 02/04/21 02:23 Dose: 50 mg Documented by: [id number] Miscellaneous (Remove Nicoderm Patch) 1 ea N/A DAILY@0859 [facility] Stop: 03/05/21 08:58 Last Admin: 02/05/21 08:33 Dose: 1 ea Documented by: [id number] Admin: 02/04/21 08:16 Dose: 1 ea Documented by: [id number] Admin: 02/03/21 08:06 Dose: 1 ea Documented by: [id number] Nicotine (Nicotine 21 Mg/24 Hr Tdsy) 21 mg TD QAM [facility] Stop: 03/05/21 08:59 Last Admin: 02/05/21 08:29 Dose: 21 mg Documented by: [id number] Admin: 02/04/21 08:16 Dose: 21 mg Documented by: [id number] Admin: 02/03/21 08:03 Dose: 21 mg Documented by: [id number] Oxcarbazepine (Oxcarbazepine 150 Mg Tablet) 150 mg PO BID [facility] Stop: 03/04/21 20:59 Last Admin: 02/05/21 08:29 Dose: 150 mg Documented by: [id number] Admin: 02/04/21 21:14 Dose: 150 mg Documented by: [id number] Admin: 02/04/21 08:17 Dose: 150 mg Documented by: [id number] Admin: 02/03/21 20:04 Dose: 150 mg Documented by: [id number] Admin: 02/03/21 13:03 Dose: 150 mg Documented by: [id number] Admin: 02/02/21 22:25 Dose: Not Given Documented by: [id number] Potassium Chloride (Potassium Chloride Crtab 20 Meq Tabcr) 20 meq PO QAM [facility] Stop: 03/07/21 08:59 Last Admin: 02/05/21 08:30 Dose: 20 meq Documented by: [id number] Quetiapine Fumarate (Quetiapine Fumarate 25 Mg Tablet) 25 mg PO BID [facility] Stop: 03/04/21 20:59 Last Admin: 02/05/21 08:29 Dose: 25 mg Documented by: [id number] Admin: 02/04/21 21:15 Dose: 25 mg Documented by: [id number] Admin: 02/04/21 08:17 Dose: 25 mg Documented by: [id number] Admin: 02/03/21 20:06 Dose: 25 mg Documented by: [id number] Admin: 02/03/21 13:03 Dose: 25 mg Documented by: [id number] Admin: 02/02/21 22:24 Dose: Not Given Documented by: [id number] Sodium Bicarbonate (Sodium Bicarbonate 650 Mg Tab) 650 mg PO TID [facility] Stop: 03/04/21 20:59 Last Admin: 02/05/21 08:29 Dose: 650 mg Documented by: [id number] Admin: 02/04/21 21:16 Dose: 650 mg Documented by: [id number] Admin: 02/04/21 13:39 Dose: 650 mg Documented by: [id number] Admin: 02/04/21 08:17 Dose: 650 mg Documented by: [id number] Admin: 02/03/21 20:05 Dose: 650 mg Documented by: [id number] Admin: 02/03/21 13:07 Dose: Not Given Documented by: [id number] Admin: 02/03/21 13:02 Dose: 650 mg Documented by: [id number] Admin: 02/02/21 22:24 Dose: Not Given Documented by: [id number] Topiramate (Topiramate 25 Mg Tab) 25 mg PO QAM [facility] Stop: 03/05/21 08:59 Last Admin: 02/05/21 08:30 Dose: 25 mg Documented by: [id number] Admin: 02/03/21 13:02 Dose: 25 mg Documented by: [id number] Coding Level of Care Code 87286 U Intl Hosp Care Lvl 1 Diagnoses Bipolar 1 disorder F31.9 Altered mental status R41.82 Altered mental status type: unspecified
[2021-02-05] MEDS ORDERED: DAPTOmycin 500 MG in SYRINGE 0 ML IV SCH (15:00)
[2021-02-06] MEDS: PIPERACILLIN/TAZOBACTAM 3.375 GM in DEXTROSE 5% 100 ML IV SCH (04:51)
[2021-02-06] MEDS: ALPRAZolam 0.25 MG TABLET PO SCH (07:49)
[2021-02-06] MEDS: BACLOFEN 10 MG TAB PO SCH (07:50)
[2021-02-06] MEDS: OXcarbazepine 150 MG TABLET PO SCH ×2 (07:51→21:47)
[2021-02-06] MEDS: QUEtiapine FUMARATE 25 MG TABLET PO SCH ×2 (07:51→21:47)
[2021-02-06] MEDS: SODIUM BICARBONATE 650 MG TAB PO SCH ×3 (07:51→21:47)
[2021-02-06] MEDS: FOLIC ACID 1 MG TAB PO SCH (07:52)
[2021-02-06] MEDS: POTASSIUM CHLORIDE CRTAB 20 MEQ TABCR PO SCH (07:52)
[2021-02-06] MEDS: ESCITALOPRAM OXALATE 20 MG TAB PO SCH (07:53)
[2021-02-06] MEDS: amLODIPine BESYLATE 5 MG TAB PO SCH (07:53)
[2021-02-06] MEDS: TOPIRAMATE 25 MG TAB PO SCH (07:53)
[2021-02-06] MEDS: GABAPENTIN 300 MG CAP PO SCH ×2 (07:55→21:46)
[2021-02-06] MEDS: METOPROLOL SUCC 50MG EXT REL TAB PO SCH ×2 (08:04→17:10)
[2021-02-06 08:22] LABS: Hematocrit (blood only) 36.6 % (37-47); Hemoglobin 12.2 g/dL (12.0-16.0); Mean Corpuscular Hemoglobin 28.3 pg (25-34); Mean Corpuscular Hgb Conc 33.3 g/dL (32-36); Mean Corpuscular Volume 84.9 fL (80-100); Mean Platelet Volume 9.1 fL (7.4-10.4); Platelet Count 204 K/uL (130-400); RDW Standard Deviation 43.2 fL (36.4-46.3); Red Blood Count 4.31 M/uL (4.2-5.4); White Blood Count 2.56 K/uL (4.8-10.8)
[2021-02-06] MEDS: BUPRENORPHINE/NALOXONE 8/2 MG TAB SL SCH ×2 (08:25→21:46)
[2021-02-06] MEDS: HEPARIN SOD 5,000 UNIT/0.5 ML VIAL SQ SCH ×3 (08:30→21:46)
[2021-02-06] MEDS: NICOTINE 21 MG/24 HR TDSY TD SCH (08:30)
[2021-02-06 08:53] LABS: BUN Creatinine Ratio 18.8 (10-20); Calcium 8.4 mg/dl (8.5-10.1); Creatinine Clr Calc Pharmacy 37.5 ml/min; Est GFR (African American) 39.8 ml/min; Est GFR (Non-African American) 34.3 ml/min; Magnesium 2.2 mg/dl (1.8-2.4); Potassium 4.1 mmol/L (3.5-5.1)
[2021-02-06] MEDS: INSULIN ASPART 100 UNITS/ML 3 ML PEN SC SCH ×4 (09:24→21:47)
--- NOTE | 2021-02-06 11:47 | Hospitalist Progress Note ---
Date of Service February 06, 2021 Assessment & Plan (1) Altered mental status: Plan: Initially thought delirium vs. medication-induced delirium vs. post-concussion (multiple falls reported). Possibly now considered infectious encephalopathy. - Infection a concern as she reports prior infection of the right sternoclavicular joint that caused similar symptoms. - Presently on Zosyn since 02/03 - Presently consideration for infection is possible RLL infection findings (possible aspiration?) - Monitor blood cultures -> No growth as of 02/05 -> Stopped daptomycin on 02/05. No indication of MRSA infection. MRSA nares swab negative x 2 this admission. -> Worse MS today. I think this is medication-related. She is on multiple sedating medications, and possibly with her worsening kidney function, they just have started to build up. - Will taper gabapentin, stop Seroquel, and make Xanax PRN. (2) DMII (diabetes mellitus, type 2): Plan: No A1c in charts. - Blood sugars have been 110 - 210 in last 24 hours. -> Continue sliding scale insulin (3) H/O: HTN (hypertension): Plan: BP presently 125/75. - Continue home amlodipine & metoprolol - Labetalol PRN severe HTN (4) GERD (gastroesophageal reflux disease): Plan: - Continue pantoprazole 40 mg PO daily (5) Bipolar 1 disorder: Plan: Had multiple meds held on admission due to altered mental status, but have restarted as mental status is back to baseline. - Continue home alprazolam, escitalopram, Suboxone, gabapentin, oxcarbazepine, quetiapine, and topiramate -> Will taper some of these as noted above due to somnolence today. - Will reach out to psychiatry to assist. (6) CKD (chronic kidney disease) stage 3, GFR 30-59 ml/min: Plan: Baseline Cr ~1.1 - 1.2. Presently with Cr of 1.4, so slightly above baseline. Slight rise possibly due to vanc/Zosyn abx. Does not appear hypovolemic. 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 Had to be sent to [facility] for debridement. - Evaluated by Dr. Lemon on 02/03 with thought that this was cleared and quiescent. - Also an erosion noted on CT of the right femur, but on x-ray, this was not noted, so also felt to be not infection. On exam on 02/05, her right BKA stump looks clean, healed, and non-erythematous. This was cleared by ortho as not infected. (8) DVT prophylaxis: Plan: Heparin 5,000 units SQ Q12h Admission and Anticipated Discharge Date Admission Date: February 03, 2021 Subjective Sleepier today. She will wake up slightly, but then quickly falls back asleep. Not really able to answer any questions. Review of Systems Review of Systems: Unobtainable due to cognitive status and Unobtainable due to reduced consciousness Physical Exam Constitutional: WD/WN, vitals as above Eyes: EOM intact bilaterally; no conjunctival abnormality ENMT: external ear and nose normal, oropharynx normal Neck: trachea midline, no thyromegaly normal visual inspection Respiratory: normal respiratory effort, lungs clear to auscultation no respiratory distress Cardiovascular: RRR, no murmur, no edema Gastrointestinal (Abdomen): Inspection/Auscultation: abdomen normal to inspection; abdomen not distended Musculoskeletal: Knee: + knee abnormal to inspection (Bilateral BKA) Skin: no rashes, warm and dry no erythema (None over right BKA stump) Neurologic: moves all extremities and awake Psychiatric: Orientation: + not alert Eye Contact: + poor eye contact Results & Data Results & Data ([facility]) Vital Signs (Past 12 Hours) Vital Signs Temp Pulse Pulse Resp BP BP Pulse Ox 02/06/21 11:39 36.6 C 52 L 18 125/74 97 02/06/21 09:02 63 02/06/21 07:23 37.0 C 72 18 219/87 H 226/116 H 99 02/06/21 02:57 37.3 C 72 18 184/81 H 97 PG Care Time/CCT Total # of Minutes Spent Total Time Spent with Patient: Total time spent is greater than 50% in coordination of care (as documented) at patient's floor/unit and/or counseling patient: Coding Level of Care Code 33269 Subseq Hosp Care Lvl 3 Diagnoses Altered mental status R41.82 Altered mental status type: unspecified DMII (diabetes mellitus, type 2) E11.9 H/O: HTN (hypertension) Z86.79 GERD (gastroesophageal reflux disease) K21.9 Bipolar 1 disorder F31.9 CKD (chronic kidney disease) stage 3, GFR 30-59 ml/min N18.30 Osteomyelitis M86.9 DVT prophylaxis Z29.9 (1) Altered mental status Altered mental status type: unspecified Qualified Code(s): R41.82 - Altered mental status, unspecified
[2021-02-06] MEDS ORDERED: BACLOFEN 10 MG TAB PO PRN (12:08)
[2021-02-06] MEDS ORDERED: ALPRAZolam 0.25 MG TABLET PO PRN (12:08)
[2021-02-06] MEDS: AMPICILLIN/SULBACTAM SOD 3,000 MG in 0.9 % SODIUM CHLORIDE 100 ML IV SCH ×2 (13:27→18:31)
[2021-02-07] MEDS: AMPICILLIN/SULBACTAM SOD 3,000 MG in 0.9 % SODIUM CHLORIDE 100 ML IV SCH ×4 (02:21→18:45)
[2021-02-07 08:23] LABS: Hematocrit (blood only) 34.7 % (37-47); Hemoglobin 11.5 g/dL (12.0-16.0); Mean Corpuscular Hemoglobin 27.8 pg (25-34); Mean Corpuscular Hgb Conc 33.1 g/dL (32-36); Mean Platelet Volume 9.1 fL (7.4-10.4); Platelet Count 212 K/uL (130-400); RDW Coefficient of Variation 14.1 % (11.5-14.5); RDW Standard Deviation 42.9 fL (36.4-46.3); Red Blood Count 4.13 M/uL (4.2-5.4); White Blood Count 3.47 K/uL (4.8-10.8)
[2021-02-07 08:31] LABS: BUN Creatinine Ratio 17.2 (10-20); Calcium 8.6 mg/dl (8.5-10.1); Creatinine Clr Calc Pharmacy 42.7 ml/min; Est GFR (African American) 46.9 ml/min; Est GFR (Non-African American) 40.5 ml/min; Potassium 3.8 mmol/L (3.5-5.1)
[2021-02-07] MEDS: BUPRENORPHINE/NALOXONE 8/2 MG TAB SL SCH ×2 (08:43→22:22)
[2021-02-07] MEDS: ESCITALOPRAM OXALATE 20 MG TAB PO SCH (08:43)
[2021-02-07] MEDS: METOPROLOL SUCC 50MG EXT REL TAB PO SCH ×2 (08:43→17:59)
[2021-02-07] MEDS: amLODIPine BESYLATE 5 MG TAB PO SCH (08:43)
[2021-02-07] MEDS: FOLIC ACID 1 MG TAB PO SCH (08:43)
[2021-02-07] MEDS: HEPARIN SOD 5,000 UNIT/0.5 ML VIAL SQ SCH ×2 (08:44→22:26)
[2021-02-07] MEDS: OXcarbazepine 150 MG TABLET PO SCH ×2 (08:44→22:21)
[2021-02-07] MEDS: NICOTINE 21 MG/24 HR TDSY TD SCH (08:44)
[2021-02-07] MEDS: GABAPENTIN 300 MG CAP PO SCH ×2 (08:44→22:19)
[2021-02-07] MEDS: SODIUM BICARBONATE 650 MG TAB PO SCH ×4 (08:45→22:20)
[2021-02-07] MEDS: TOPIRAMATE 25 MG TAB PO SCH (08:45)
[2021-02-07] MEDS: POTASSIUM CHLORIDE CRTAB 20 MEQ TABCR PO SCH (08:45)
[2021-02-07] MEDS: INSULIN ASPART 100 UNITS/ML 3 ML PEN SC SCH ×4 (08:49→22:27)
--- NOTE | 2021-02-07 14:26 | Hospitalist Progress Note ---
Date of Service February 07, 2021 Assessment & Plan (1) Altered mental status: Plan: Initially thought delirium vs. medication-induced delirium vs. post-concussion (multiple falls reported). Possibly now considered infectious encephalopathy or metabolic encephalopathy. - On Zosyn since 02/03, switched to Unasyn on 02/06. - Presently consideration for infection is possible RLL infection findings (possible aspiration?) - Monitor blood cultures -> No growth as of 02/07 -> Stopped daptomycin on 02/05. No indication of MRSA infection. MRSA nares swab negative x 2 this admission. -> Improved mental status today. I still think this is medication-related. On 02/06: * Tapered gabapentin from 300 mg PO TID to 300 mg PO BID * Tapered Seroquel from 25 mg PO BID to 25 mg PO HS * Changed baclofen from 10 mg PO TID to 5 mg PO TID PRN (was standing TID before) * Changed Xanax from 0.25 mg PO BID standing to PRN for agitation/anxiety. -> This has improved mental status, though she is still have some stuttering speech. No focal neurologic findings in limbs. MRI brain showed no stroke on 02/04, so I don't think repeating it at this time would be beneficial. (2) DMII (diabetes mellitus, type 2): Plan: No A1c in charts. - Blood sugars have been 110 - 210 in last 24 hours. -> Continue sliding scale insulin (3) H/O: HTN (hypertension): Plan: BP presently 195/80. - Continue home amlodipine & metoprolol - Labetalol PRN for severe HTN (4) GERD (gastroesophageal reflux disease): Plan: - Continue pantoprazole 40 mg PO daily (5) Bipolar 1 disorder: Plan: Had multiple meds held on admission due to altered mental status, but were then restarted as mental status is back to baseline. - Continue home alprazolam, escitalopram, Suboxone, gabapentin, oxcarbazepine, quetiapine, and topiramate -> Adjusted quite a few on 02/06 as reported above as her MS returned to very somnolent. (6) CKD (chronic kidney disease) stage 3, GFR 30-59 ml/min: Plan: Baseline Cr ~1.1 - 1.2. Cr up to 1.65 on 02/06. Slight rise possibly due to vanc/Zosyn abx. Does not appear hypovolemic. - Monitor Cr -> Trending back down today to 1.45. 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 Had to be sent to [facility] for debridement. - Evaluated by Dr. Lemon on 02/03 with thought that this was cleared and quiescent. - Also an erosion noted on CT of the right femur, but on x-ray, this was not noted, so also felt to be not infection. On exam on 02/05, her right BKA stump looks clean, healed, and non-erythematous. This was cleared by ortho as not infected. (8) DVT prophylaxis: Plan: Heparin 5,000 units SQ Q12h Admission and Anticipated Discharge Date Admission Date: February 03, 2021 Subjective Doing some better today. Spontaneously awake. Responds to questions, though answers not always sensible. When asked about pain, she responds "Yes" but cannot pinpoint a location. Likewise with lots of ROS (shortness of breath, nausea), she responds yes, but then cannot explain further. Review of Systems Review of Systems: Unobtainable due to cognitive status Physical Exam Constitutional: WD/WN, vitals as above Eyes: EOM intact bilaterally; no conjunctival abnormality ENMT: external ear and nose normal, oropharynx normal Neck: trachea midline, no thyromegaly normal visual inspection Respiratory: normal respiratory effort, lungs clear to auscultation no respiratory distress Cardiovascular: RRR, no murmur, no edema Gastrointestinal (Abdomen): Inspection/Auscultation: abdomen normal to inspection; abdomen not distended Musculoskeletal: Knee: + knee abnormal to inspection (Bilateral BKA) Skin: no rashes, warm and dry no erythema (None over right BKA stump) Neurologic: moves all extremities and awake Psychiatric: Eye Contact: + poor eye contact Results & Data Results & Data ([facility]) Vital Signs (Past 12 Hours) Vital Signs Temp Pulse Pulse Resp BP Pulse Ox 02/07/21 11:27 37.6 C H 76 20 195/83 H 96 02/07/21 07:55 37.4 C 79 20 188/79 H 99 02/07/21 06:40 81 02/07/21 02:37 36.9 C 80 20 186/80 H 96 PG Care Time/CCT Total # of Minutes Spent Total Time Spent with Patient: Total time spent is greater than 50% in coordination of care (as documented) at patient's floor/unit and/or counseling patient: Coding Level of Care Code 95220 Subseq Hosp Care Lvl 2 Diagnoses Altered mental status R41.82 Altered mental status type: unspecified DMII (diabetes mellitus, type 2) E11.9 H/O: HTN (hypertension) Z86.79 GERD (gastroesophageal reflux disease) K21.9 Bipolar 1 disorder F31.9 CKD (chronic kidney disease) stage 3, GFR 30-59 ml/min N18.30 Osteomyelitis M86.9 DVT prophylaxis Z29.9 (1) Altered mental status Altered mental status type: unspecified Qualified Code(s): R41.82 - Altered mental status, unspecified
[2021-02-07] MEDS ORDERED: ACETAMINOPHEN 325 MG TAB PO PRN (15:40)
[2021-02-07] MEDS: LABETALOL HCL IV 5 MG/ML 20ML IV PRN (15:43)
[2021-02-07 17:05] LABS: Appearance Urine Cloudy (Clear); Bacteria Urine Automated Negative (Negative); Bilirubin Urine Negative (Negative); Blood Urine 2+ (Negative); Color Urine Yellow; Epithelial Cell Urine Auto >30 /lpf (0-5); Glucose Urine UA 1+ (Negative); Ketones Urine Negative (Negative); Leukocyte Esterase Urine Trace (Negative); Nitrite Urine Negative (Negative); Protein Urine 3+ (Negative); Specific Gravity Urine 1.017 (1.000-1.030); Urobilinogen Urine Negative (Negative); WBC Urine Automated >30 /hpf (0-5)
[2021-02-07 17:16] LABS: Cast Urine Automated 0 /lpf (0-5)
--- NOTE | 2021-02-07 17:33 | XRay Report ---
SINGLE VIEW CHEST CLINICAL HISTORY: Fever. FINDINGS: An AP, portable, upright chest radiograph is compared to study dated 02/02/2021 and correlat ed with chest CT dated 02/03/2021. The cardiomediastinal silhouette is unremarkable. There is elevatio n of the right hemidiaphragm with mild bibasilar atelectasis. No airspace consolidation or large pleu ral effusion is identified. No pneumothorax is seen. The skeletal structures are osteopenic. The bony thorax is grossly intact. Cholecystectomy clips are noted in the right upper quadrant. IMPRESSION: No airspace consolidation or pleural effusion is identified. ACT 112: Negative or not required by law. Electronically signed by: Erik Martinez M.D. 02/07/2021 5:31 PM
[2021-02-07] MEDS: QUEtiapine FUMARATE 25 MG TABLET PO SCH (22:20)
[2021-02-08] MEDS: AMPICILLIN/SULBACTAM SOD 3,000 MG in 0.9 % SODIUM CHLORIDE 100 ML IV SCH ×3 (01:38→12:17)
[2021-02-08 06:51] LABS: Hematocrit (blood only) 33.8 % (37-47); Hemoglobin 11.6 g/dL (12.0-16.0); Mean Corpuscular Hgb Conc 34.3 g/dL (32-36); Mean Corpuscular Volume 81.4 fL (80-100); Mean Platelet Volume 9.2 fL (7.4-10.4); Platelet Count 175 K/uL (130-400); RDW Coefficient of Variation 13.9 % (11.5-14.5); RDW Standard Deviation 41.6 fL (36.4-46.3); Red Blood Count 4.15 M/uL (4.2-5.4); White Blood Count 6.72 K/uL (4.8-10.8)
[2021-02-08 07:22] LABS: BUN Creatinine Ratio 18.6 (10-20); Blood Urea Nitrogen 25 mg/dl (7-18); Calcium 8.1 mg/dl (8.5-10.1); Carbon Dioxide 17 mmol/L (21-32); Chloride 113 mmol/L (98-107); Creatinine Clr Calc Pharmacy 44.3 ml/min; Est GFR (African American) 50.3 ml/min; Est GFR (Non-African American) 43.4 ml/min; Glucose 124 mg/dl (70-99); Potassium 4.5 mmol/L (3.5-5.1); Sodium 138 mmol/L (136-145)
[2021-02-08] MEDS: OXcarbazepine 150 MG TABLET PO SCH (07:33)
[2021-02-08] MEDS: ESCITALOPRAM OXALATE 20 MG TAB PO SCH (07:33)
[2021-02-08] MEDS: POTASSIUM CHLORIDE CRTAB 20 MEQ TABCR PO SCH (07:33)
[2021-02-08] MEDS: HEPARIN SOD 5,000 UNIT/0.5 ML VIAL SQ SCH (07:33)
[2021-02-08] MEDS: TOPIRAMATE 25 MG TAB PO SCH (07:33)
[2021-02-08] MEDS: amLODIPine BESYLATE 5 MG TAB PO SCH (07:34)
[2021-02-08] MEDS: NICOTINE 21 MG/24 HR TDSY TD SCH (07:34)
[2021-02-08] MEDS: BUPRENORPHINE/NALOXONE 8/2 MG TAB SL SCH (07:34)
[2021-02-08] MEDS: GABAPENTIN 300 MG CAP PO SCH (07:34)
[2021-02-08] MEDS: SODIUM BICARBONATE 650 MG TAB PO SCH ×2 (07:34→13:28)
[2021-02-08] MEDS: METOPROLOL SUCC 50MG EXT REL TAB PO SCH (07:34)
[2021-02-08] MEDS: FOLIC ACID 1 MG TAB PO SCH (07:34)
[2021-02-08] MEDS: INSULIN ASPART 100 UNITS/ML 3 ML PEN SC SCH ×2 (08:27→12:17)
--- NOTE | 2021-02-08 16:33 | Discharge Summary ---
Date of Service February 08, 2021 Admission HPI Per Admitting Provider 55 YOF with resident of [facility] with past medical history of: DM II, Chronic pain, GERD, HTN, bilateral BKA, bipolar disorder, YARY, EVELIA, nicotine dependance, generalized muscle weakness. There are no records in our system for review. Patient is also now sedated following Ativan in the EMD for combativeness and delirium. Most of the information in this HPI is obtained from record review that accompanied the patient from [facility]. The patient was brought to the EMD today secondary to multiple falls as well as acute delirium and confusion. Review of nursing notes show that patient had a fall from her wheel chair on the in the evening, following with delirium on the as well as another fall out of bed on the early in the morning. Patient also reported to be getting out of bed and attempting to walk on her stumps looking for her cigarettes. The patient was started on Baclofen on the assuming for her chronic pain syndrome. This has since been held sine the in the morning. Patient arrived in the EMD had a CT scan of the head and neck performed. Revealing osteophytes in the cervical region of c3-c6 with mild acquired compromise of the central canal and atheroscleroptic calcifications of the carotid bulbs. CT of the head revealed hypodensity of the posterior limb of the left internal capsule likely chronic. Per the EMD the nurse the patient would wax and wane with her delirium and was again attempting to get up out of bed, and was sedated with Ativan. Her routine lab work did not reveal any evidence of infection and urine was not noted to have any bacteria. Her glucose is in an accetable range. In the EMD she was given 1 dose of Zosyn. Patient will be admitted for medical telemetry to continue to evaluate her delirium and monitor for any other dysrhythmias. Principal Diagnosis Mild pneumonia Medication-induced fatigue/confusion Discharge Exam Constitutional WD/WN, vitals as above Eyes EOM intact bilaterally; no conjunctival abnormality ENMT external ear and nose normal, oropharynx normal Neck trachea midline, no thyromegaly normal visual inspection Respiratory normal respiratory effort, lungs clear to auscultation no respiratory distress Cardiovascular RRR, no murmur, no edema Gastrointestinal (Abdomen) Inspection/Auscultation: abdomen normal to inspection; abdomen not distended Musculoskeletal Knee: + knee abnormal to inspection (Bilateral BKA) Skin no rashes, warm and dry no erythema (None over right BKA stump) Neurologic moves all extremities and awake Psychiatric Orientation: + not alert Eye Contact: + poor eye contact Discharge Data Allergies Allergy/AdvReac Type Severity Reaction Status Date / Time vancomycin AdvReac Unknown Unknown Unverified 09/10/20 14:31 Consultations 02/02/21 15:54 ED Decision to Admit Stat 02/03/21 11:55 Consult Psychiatry Routine 02/03/21 16:12 Consult Orthopedic Surgery Routine Ordered Studies 02/02/21 10:14 CT head/brain wo con Stat 02/02/21 10:15 CT cervical spine wo con Stat 02/03/21 11:17 CT chest diagnostic wo/w con Urgent 02/03/21 11:33 CT Abd and Pelvis [CT abd pelvis wo con] Urgent 02/03/21 11:35 CT femur RT wo con Urgent 02/04/21 11:28 MR brain wo con Routine Hospital Course (1) Altered mental status: Initially thought delirium vs. medication-induced delirium vs. post- concussion (multiple falls reported). Possibly now considered infectious encephalopathy or metabolic encephalopathy. - On Zosyn since 02/03, switched to Unasyn on 02/06. - Presently consideration for infection is possible RLL infection findings (possible aspiration?) - Monitor blood cultures -> No growth as of 02/07 -> Stopped daptomycin on 02/05. No indication of MRSA infection. MRSA nares swab negative x 2 this admission. -> Improved mental status today. I still think this is medication-related. On 02/06: * Tapered gabapentin from 300 mg PO TID to 300 mg PO BID * Tapered Seroquel from 25 mg PO BID to 25 mg PO HS * Changed baclofen from 10 mg PO TID to 5 mg PO TID PRN (was standing TID before) * Changed Xanax from 0.25 mg PO BID standing to PRN for agitation/anxiety. -> This has improved mental status. She had some transient stuttering speech, but this resolved. (2) DMII (diabetes mellitus, type 2): No A1c in charts. - Blood sugars have been 110 - 210 in last 24 hours. -> Continue sliding scale insulin. No change on discharge. (3) H/O: HTN (hypertension): BP presently 195/80. - Continue home amlodipine & metoprolol - Labetalol PRN for severe HTN (4) GERD (gastroesophageal reflux disease): - Continue pantoprazole 40 mg PO daily (5) Bipolar 1 disorder: Had multiple meds held on admission due to altered mental status, but were then restarted as mental status is back to baseline. - Continue home alprazolam, escitalopram, Suboxone, gabapentin, oxcarbazepine, quetiapine, and topiramate -> Adjusted quite a few on 02/06 as reported above as her mental status returned to very somnolent. (6) CKD (chronic kidney disease) stage 3, GFR 30-59 ml/min: Baseline Cr ~1.1 - 1.2. Cr up to 1.65 on 02/06. Slight rise possibly due to vanc/Zosyn abx. Does not appear hypovolemic. - Monitor Cr -> Trending back down today to 1.35. - Can recheck in 1 week. 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 Had to be sent to [facility] for debridement. - Evaluated by Dr. Lemon on 02/03 with thought that this was cleared and quiescent. - Also an erosion noted on CT of the right femur, but on x-ray, this was not noted, so also felt to be not infection. On exam on 02/05, her right BKA stump looks clean, healed, and non-erythematous. This was cleared by ortho as not infected. (8) DVT prophylaxis: Heparin 5,000 units SQ Q12h Total Time Total Time Spent Total Time Spent (In Minutes): 35 Discharge Plan Discharge Items Patient Disposition: Transfer Halfway Fac Reason For Visit: FALLS/ACUTE DELIRIUM Discharge Diagnosis: Mild pneumonia Medication effects Condition on Discharge: Good Activity: Resume your previous activity Non-emergency contact: Primary Care Provider Call non-emergency contact if: your symptoms worsen Follow-up/Referrals: Wesley Williamson [Primary Care Provider] - Diet: Carb Consistent or DM2 and Heart Healthy Addtl Attending Provider Instructions: Ms. Guillory was admitted to the hospital with mental status changes (confusion), falls, and pneumonia. She was treated with IV antibiotics for her pneumonia and is done with antibiotics at this time (as of discharge). She was thoroughly checked for any other source of infection, including blood cultures, scans of her bones (in the chest and at the amputation site), and urine testing. There is no other sign of infection for her. She was double-checked for Covid, and this was negative both times. On Friday, she had a relapse of somnolence and lethargy. This was thought to be due to her baclofen and other sedating medications. These were tapered slightly, and she has been alert and doing well since then. Psychiatry saw her as well and agreed with the medication changes. In particular, mixing benzodiazepines (her Xanax) with Suboxone can really cause a lot of confusion and mental status changes, so trying to use Xanax as *little* as possible is important. Pending Studies at Discharge: No Stand-Alone Forms: My [facility] Skilled Items Patient informed of condition?: Yes DNR: Yes Discharge Level of Care: Skilled Communicable Disease: No Discharge Prognosis: Stable Lines: None Urinary Catheter: No Medications and DC Order Prescriptions: Continued oxcarbazepine [Trileptal] 150 mg tablet 150 mg PO BID RF: 0 metoprolol succinate [Toprol XL] 50 mg tablet extended release 24 hr 50 mg PO BIDM RF: 0 topiramate [Topamax] 25 mg tablet 25 mg PO QAM RF: 0 ferrous sulfate [Iron (ferrous sulfate)] 325 mg (65 mg iron) tablet 325 mg PO QAM RF: 0 nicotine [Nicoderm CQ] 21 mg/24 hr Patch 24 Hour 1 patch TRANSDERMAL QAM RF: 0 folic acid 1 mg Tablet 1 mg PO QAM RF: 0 insulin lispro [Humalog KwikPen Insulin] 100 unit/mL insulin pen 0 unit SUBCUT .SLIDING SCALE RF: 0 escitalopram oxalate [Lexapro] 20 mg tablet 20 mg PO QAM RF: 0 buprenorphine-naloxone [Suboxone] 8-2 mg film 1 film sublingual BID RF: 0 amlodipine [Norvasc] 5 mg tablet 5 mg PO QAM RF: 0 sodium bicarbonate 650 mg Tablet 650 mg PO TID RF: 0 pantoprazole [Protonix] 40 mg tablet,delayed release (DR/EC) 40 mg PO DAILYBB RF: 0 Lantus Solostar U-100 Insulin 100 unit/mL (3 mL) insulin pen 10 unit SUBCUT HS RF: 0 potassium chloride [K-Tab] 20 mEq Tablet Extended Release 20 meq PO QAM RF: 0 Changed quetiapine [Seroquel] 25 mg tablet 25 mg PO HS Qty: 0 RF: 0 alprazolam [Xanax] 0.25 mg tablet 0.25 mg PO BID PRN (Reason: Anxiety) Qty: 0 RF: 0 baclofen 10 mg Tablet 5 mg PO TID PRN (Reason: Muscle Spasm) Qty: 0 RF: 0 gabapentin [Neurontin] 300 mg capsule 300 mg PO BID Qty: 0 RF: 0 Discharge Orders: Discharge Order (Routine); Ordered 02/08/21 Ordered By: Abhijeet Givens Admission Data Admit Date/Time: 02/03/21 12:02 Attending Provider: Abhijeet Givens Admit Provider: Alok Varma Primary Care Provider: Wesley Williamson Other Providers: Mariaelena Naidu ; Dr Gato ; Nadine Garzon ; Berny Vega ; Terence Domínguez ; Abhijeet Givens Other Interventions: Discharge Summary Assessment (RN) Last Done: 02/08/21 15:27 Coding Level of Care Code D/C DAY MANAGEMENT >30 MINS Diagnoses Altered mental status R41.82 Altered mental status type: unspecified DMII (diabetes mellitus, type 2) E11.9 H/O: HTN (hypertension) Z86.79 GERD (gastroesophageal reflux disease) K21.9 Bipolar 1 disorder F31.9 CKD (chronic kidney disease) stage 3, GFR 30-59 ml/min N18.30 Osteomyelitis M86.9 DVT prophylaxis Z29.9
== END 2021-02-08 16:50 | DRG 177 ==
LOC: 2N 09:18 → ED 09:18 → SUATTDRO 17:13 → 2N 20:04 → SUATTDRO 02-03 12:02